=== PATIENT | female | born 1930 | race Asian ===

== ENCOUNTER 2017-01-08 10:30 | Outpatient (CLI) | payer MEDICARE, OTHER | END 2017-01-08 10:31 | disposition home or self-care (01) | LOC: LAB.WCP 10:30 | PROVIDERS: ATTEND Family Medicine | DX: R30.0 Dysuria (principal) | CPT/HCPCS: 87086 ==

== ENCOUNTER 2017-11-13 03:44 | Emergency (ER) | payer MEDICARE, OTHER ==
--- NOTE | 2017-11-13 04:06 | ED Physician Documentation ---
History of Present Illness - Stated complaint Stated Complaint: GREGORY HAND PAIN - Chief complaint Chief Complaint: Ext Problem - History obtained from History obtained from: Patient, Family - History of Present Illness Timing: Chronic Pain level now: 8 Improved by: rest Worsened by: movement - Additonal information Additional information: c/o BUE/BLE diffuse joint pains, chronic. Pain has been controlled with oxycodone but ran out oxycodone yesterday. Review of Systems Constitutional: reports: Reviewed and negative Cardiac: reports: Reviewed and negative Respiratory: denies: Dyspnea GI: reports: Reviewed and negative Musculoskeletal: reports: Neck pain, Extremity pain, Joint pain, Pain with weight bearing Neurologic: reports: Reviewed and negative PD PAST MEDICAL HISTORY - Past Medical History Past Medical History: Yes Cardiovascular: Hypertension, [place], Other Respiratory: Other Neuro: None Endocrine/Autoimmune: None GI: GERD : None HEENT: Chronic hearing loss Psych: Anxiety, Other Musculoskeletal: Osteoarthritis, Osteoporosis Derm: Psoriasis Other Past Medical History: Insomnia - Past Surgical History Past Surgical History: Yes 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 Cardiovascular: CABG, Coronary stent HEENT: Cataracts - Present Medications Home Medications: Ambulatory Orders Medication Instructions Recorded Confirmed Atorvastatin Calcium [Lipitor] 80 mg PO QPM 06/03/13 07/11/16 Carvedilol [Coreg] 6.25 mg PO BID 06/03/13 07/11/16 Lisinopril [Prinivil] 20 mg PO DAILY 06/03/13 07/11/16 Paroxetine HCl [Paxil] 30 mg PO DAILY 06/03/13 07/11/16 Adalimumab [Humira] 40 mg SQ Q14D 06/04/13 07/11/16 Glycopyrrolate [Robinul Forte] 2 mg PO TID 03/19/16 07/11/16 Ondansetron HCl [Zofran] 4 mg PO DAILY PRN 03/19/16 07/11/16 Pantoprazole [Protonix] 40 mg PO DAILY 03/19/16 07/11/16 Zolpidem [Ambien] 10 mg PO QPM 03/19/16 07/11/16 clonazePAM [Clonazepam] 1 tab PO QPM PRN 03/19/16 07/11/16 Clopidogrel [Plavix] 75 mg PO DAILY tablet 07/11/16 Folic Acid 0.5 mg PO DAILY tablet 07/11/16 Aspirin [Children's Aspirin] 1 tab PO DAILY 11/13/17 11/13/17 oxyCODONE [Roxicodone] 5 mg PO Q6H PRN #14 tablet 11/13/17 - Allergies Allergies/Adverse Reactions: Allergies Allergy/AdvReac Type Severity Reaction Status Date / Time R[place]wolf[place] Alkaloids Allergy Unknown unknown Verified 11/13/17 03:59 Sulfa (Sulfonamide Allergy Unknown unknown Verified 11/13/17 03:59 Antibiotics) Thiazides Allergy Unknown unknown Verified 11/13/17 03:59 - Social History Does the pt smoke?: No Smoking Status: Never smoker Does the pt drink ETOH?: No Does the pt have substance abuse?: No - Immunizations Immunizations are current?: Yes - POLST Patient has POLST: No PD ED PE NORMAL - Vitals Vital signs reviewed: Yes - General General: Alert and oriented X 3, No acute distress, Well developed/nourished, Other (falls asleep easily) - HEENT HEENT: Moist mucous membranes - Neck Neck: Supple, no meningeal sign - Cardiac Cardiac: RRR, No murmur - Respiratory Respiratory: No respiratory distress, Clear bilaterally - Extremities Extremities: Normal ROM s pain, No edema - Neuro Neuro: No sensory deficit PD ED PE EXPANDED - Extremities Extremities: Pedal Pulses Present. No: Tenderness, Limited ROM, Swelling Results - Vitals Vitals: Vital Signs - 24 hr 11/13/17 11/13/17 03:51 05:20 Temperature 36.5 C Heart Rate 61 72 Respiratory 18 16 Rate Blood Pressure 137/74 H 156/79 H O2 Saturation 100 99 Oxygen O2 Source Room air PD MEDICAL DECISION MAKING - ED course Complexity details: considered differential, d/w patient, d/w family Departure - Departure Disposition: 01 Home, Self Care Clinical Impression: Arthritis Condition: Good Instructions: ED Degenerative Joint Disease Follow-Up: Adrien Hernandez MD [Primary Care Provider] - (Call when the office opens this morning to arrange follow-up appointment) Prescriptions: oxyCODONE [Roxicodone] 5 mg PO Q6H PRN #14 tablet PRN Reason: Joint Pain Discharge Date/Time: 11/13/17 05:25
[2017-11-13] MEDS ORDERED: oxyCODONE 5 MG TABLET PO STA (05:04)
[2017-11-13 05:29] VITALS: BP 156/79
== END 2017-11-13 05:25 | disposition home or self-care (01) ==
LOC: ED 03:44
DX: M19.90 Unspecified osteoarthritis, unspecified site (principal); I10 Essential (primary) hypertension; I25.2 Old myocardial infarction; Z95.1 Presence of aortocoronary bypass graft; Z95.5 Presence of coronary angioplasty implant and graft; Z79.82 Long term (current) use of aspirin
CPT/HCPCS: 99283; A9270

== ENCOUNTER 2017-11-15 02:33 | Emergency (ER) | payer MEDICARE, OTHER ==
[2017-11-15] MEDS ORDERED: oxyCOD/ACETAMIN 5 MG/325 MG TABLET PO STA (03:32)
[2017-11-15] MEDS ORDERED: DEXAMETHASONE 10 MG/ML VIAL PO STA (03:33)
[2017-11-15 04:04] LABS: BASOPHILS # (AUTO) 0.1 10^3/uL (0.0-0.1); BASOPHILS % (AUTO) 0.8 %; EOSINOPHILS # (AUTO) 1.7 10^3/uL (0.0-0.7); EOSINOPHILS % (AUTO) 24.5 %; HGB - HEMOGLOBIN 12.1 g/dL (12.0-16.0); LYMPHOCYTES # (AUTO) 2.1 10^3/uL (1.5-3.5); LYMPHOCYTES % (AUTO) 31.1 %; MEAN CORPUSCULAR HEMOGLOBIN 30.5 pg (27.0-31.0); MEAN CORPUSCULAR HGB CONC 33.8 g/dL (32.0-36.0); MEAN CORPUSCULAR VOLUME 90.3 fL (81.0-99.0); MEAN PLATELET VOLUME 7.6 fL (7.9-10.8); MONOCYTES # (AUTO) 0.4 10^3/uL (0.0-1.0); MONOCYTES % (AUTO) 6.1 %; NEUTROPHILS # (AUTO) 2.6 10^3/uL (1.5-6.6); NEUTROPHILS % (AUTO) 37.5 %; PLT - PLATELET COUNT 195 10^3/uL (130-450); RED BLOOD COUNT 3.96 10^6/uL (4.20-5.40); RED CELL DISTRIBUTION WIDTH 13.3 % (12.0-15.0); WHITE BLOOD COUNT 6.8 x10^3/uL (4.8-10.8)
[2017-11-15 04:12] LABS: ALBUMIN 3.7 g/dL (3.2-5.5); BILIRUBIN,TOTAL 0.6 mg/dL (0.2-1.0); CALCIUM 9.3 mg/dL (8.5-10.3); CREATININE 1.1 mg/dL (0.4-1.0); MAGNESIUM 2.3 mg/dL (1.7-2.8); TOTAL PROTEIN 7.3 g/dL (6.7-8.2)
--- NOTE | 2017-11-15 04:32 | ED Physician Documentation ---
PD HPI LOWER EXT INJURY - Stated complaint Stated Complaint: HAND/LEG PX - Chief complaint Chief Complaint: Ext Problem - History obtained from History obtained from: Patient - History of Present Illness PD HPI LOW EXT INJURY LOCATION: Other (pains diffusely in arms and legs, particularly thighs and knees. Also arthritis in hands.) Type of injury: No: Fall, Twist Timing - onset: How many days ago (she has chronic arthritis pains in hands, knees, feet. Is having worse than usual pain and is gesturing towad thighs and hips. No rash nor sore. No particular injury.) Timing - duration: Days (has had increased pain over baseline the past month or more, so taking 2 rather than 1 pill at intervals instead, so is run out of her usual meds. Seen in ED yesterday and got an extra tab, but did not get the Rx filled. Was to see PMD today but did not make appt. Will be next week.) Timing - details: Gradual onset, Still present, Waxing and waning Worsened by: Moving, Palpating Associated symptoms: Weakness (general). No: Numbness, Swelling Contributing factors: No: Anticoagulated, Prior ortho surgery Similar symptoms before: Diagnosis (has rhematoid arthritis. Chronic general pains.) Recently seen: Emergency Dept (yesterday with the exac pain and given extra pain med. Also Rx for 14 more tabs, but patient did not get it filled as yet.) Review of Systems Constitutional: reports: Myalgias, Fatigue. denies: Fever, Chills Nose: denies: Rhinorrhea / runny nose, Congestion Throat: denies: Sore throat Cardiac: denies: Chest pain / pressure Respiratory: denies: Dyspnea, Cough GI: denies: Abdominal Pain, Nausea, Vomiting, Diarrhea, Bloody / black stool Skin: denies: Rash, Lesions Neurologic: reports: Generalized weakness. 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 Cardiovascular: CABG, Coronary stent HEENT: Cataracts - Present Medications Home Medications: Ambulatory Orders Medication Instructions Recorded Confirmed Atorvastatin Calcium [Lipitor] 80 mg PO QPM 06/03/13 07/11/16 Carvedilol [Coreg] 6.25 mg PO BID 06/03/13 07/11/16 Lisinopril [Prinivil] 20 mg PO DAILY 06/03/13 07/11/16 Paroxetine HCl [Paxil] 30 mg PO DAILY 06/03/13 07/11/16 Adalimumab [Humira] 40 mg SQ Q14D 06/04/13 07/11/16 Glycopyrrolate [Robinul Forte] 2 mg PO TID 03/19/16 07/11/16 Ondansetron HCl [Zofran] 4 mg PO DAILY PRN 03/19/16 07/11/16 Pantoprazole [Protonix] 40 mg PO DAILY 03/19/16 07/11/16 Zolpidem [Ambien] 10 mg PO QPM 03/19/16 07/11/16 clonazePAM [Clonazepam] 1 tab PO QPM PRN 03/19/16 07/11/16 Clopidogrel [Plavix] 75 mg PO DAILY tablet 07/11/16 Folic Acid 0.5 mg PO DAILY tablet 07/11/16 Aspirin [Children's Aspirin] 1 tab PO DAILY 11/13/17 11/13/17 oxyCODONE [Roxicodone] 5 mg PO Q6H PRN #14 tablet 11/13/17 Dexamethasone [Decadron] 4 mg PO DAILY #5 tablet 11/15/17 oxyCODONE [Roxicodone] 5 mg PO Q4-6H PRN #20 tablet 11/15/17 - Allergies Allergies/Adverse Reactions: Allergies Allergy/AdvReac Type Severity Reaction Status Date / Time Rauwolfia Alkaloids Allergy Unknown unknown Verified 11/15/17 02:55 Sulfa (Sulfonamide Allergy Unknown unknown Verified 11/15/17 02:55 Antibiotics) Thiazides Allergy Unknown unknown Verified 11/15/17 02:55 - Social History Does the pt smoke?: No Smoking Status: Never smoker Does the pt drink ETOH?: No Does the pt have substance abuse?: No - Immunizations Immunizations are current?: Yes - POLST Patient has POLST: No PD ED PE NORMAL - Vitals Vital signs reviewed: Yes - General General: Alert and oriented X 3, No acute distress, Well developed/nourished - HEENT HEENT: Pharynx benign - Neck Neck: Supple, no meningeal sign, No adenopathy - Cardiac Cardiac: RRR, No murmur - Respiratory Respiratory: Clear bilaterally - Abdomen Abdomen: Normal bowel sounds, Soft, Non tender, Non distended - Back Back: No CVA TTP - Derm Derm: Normal color, Warm and dry - Extremities Extremities: No edema, No calf tenderness / cord, Other (diffuse arthrlagias, particularly lower extremities. Some arthritic changes in finger joints. ) Results - Vitals Vitals: Vital Signs - 24 hr 11/15/17 11/15/17 11/15/17 02:40 04:15 04:38 Temperature 36.0 C L Heart Rate 64 55 L 60 Respiratory 18 18 18 Rate Blood Pressure 148/84 H 141/68 H 126/75 O2 Saturation 98 96 100 Oxygen O2 Source Room air - Labs Labs: Laboratory Tests 11/15/17 11/15/17 11/15/17 03:35 03:35 03:35 WBC 6.8 RBC 3.96 L Hgb 12.1 Hct 35.8 L MCV 90.3 MCH 30.5 MCHC 33.8 RDW 13.3 Plt Count 195 MPV 7.6 L Neut # 2.6 Lymph # 2.1 [place] # 0.4 Eos # 1.7 H Baso # 0.1 Absolute Nucleated RBC 0.00 Band Neuts % (Manual) Not Reportable Abnorm Lymph % (Manual) Not Reportable Nucleated RBC % 0.0 Neutrophils # (Manual) Not Reportable Lymphocytes # (Manual) Not Reportable Monocytes # (Manual) Not Reportable Eosinophils # (Manual) Not Reportable Basophils # (Manual) Not Reportable Differential Comment MANUAL=AUTO DIFF Platelet Estimate NORMAL (130-450,000) Platelet Morphology NORMAL APPEARANCE RBC Morph Micro Appear NORMAL APPEARANCE ESR 11 Sodium 135 Potassium 4.2 Chloride 103 Carbon Dioxide 26 Anion Gap 6.0 BUN 23 H Creatinine 1.1 H Estimated GFR (MDRD) 47 L Glucose 99 Calcium 9.3 Magnesium 2.3 Total Bilirubin 0.6 AST 34 ALT 26 Alkaline Phosphatase 57 Total Creatine Kinase 148 Total Protein 7.3 Albumin 3.7 Globulin 3.6 Albumin/Globulin Ratio 1.0 Lipase 27 PD MEDICAL DECISION MAKING - ED course Complexity details: reviewed results, re-evaluated patient (feeling much better with PO meds, so consider just out of her usual pain meds. ), considered differential (She has chronic pain and takes meds regularly. Has been taking some extra at times and so is short on meds. So can't tell if just out of meds so pain is more prominent. Or has some exac of issue, such as RA. Can give short course of steroids. Is on cholesterol med, so consider muscle pains from that and suggest that she stop it for 3-4 weeks. ), d/w patient Departure - Departure Disposition: 01 Home, Self Care Clinical Impression: Myalgia Condition: Stable Record reviewed to determine appropriate education?: Yes Instructions: ED Muscle Pain Leg Cramps Follow-Up: Adrien Hernandez MD [Primary Care Provider] - Prescriptions: Dexamethasone [Decadron] 4 mg PO DAILY #5 tablet oxyCODONE [Roxicodone] 5 mg PO Q4-6H PRN #20 tablet PRN Reason: Pain Comments: The cholesterol medicines can cause diffuse muscle pains and so I would suggest stopping your Lipitor for 3 or 4 weeks and see if it makes a general difference. He may be having arthritis pains instead and so we will add dexamethasone steroid daily for 5 days to see if it helps. Continue your other usual medications. Continue your oxycodone but try to decrease to a tablet for 5 times a day. Do not take extra beyond the recommended dose as you will run out early as you have. Follow-up with your primary care in the next few days for an appointment. Discharge Date/Time: 11/15/17 04:38
[2017-11-15 04:39] VITALS: BP 126/75
[2017-11-15 04:43] LABS: DIFFERENTIAL COMMENT MANUAL=AUTO DIFF; PLATELET ESTIMATE, MANUAL NORMAL (130-450,000) (NORMAL); PLATELET MORPHOLOGY NORMAL APPEARANCE (NORMAL); RBC MORPHOLOGY (MULTIPLE) NORMAL APPEARANCE (NORMAL)
== END 2017-11-15 04:38 | disposition home or self-care (01) ==
LOC: ED 02:33
DX: M79.1 Myalgia (principal); I10 Essential (primary) hypertension; Z79.82 Long term (current) use of aspirin; Z79.891 Long term (current) use of opiate analgesic
CPT/HCPCS: 80053; 82550; 83690; 83735; 85025; 85651; 99283; A9270; 36415

== ENCOUNTER 2018-02-03 15:11 | Emergency (ER) | payer MEDICARE, OTHER ==
--- NOTE | 2018-02-03 19:34 | ED Physician Documentation ---
History of Present Illness - Stated complaint Stated Complaint: BILAT HAND PX - Chief complaint Chief Complaint: General - History obtained from History obtained from: Patient - History of Present Illness Timing: How many days ago (has had increased arthritis pains in hands and joints ; pcp had decreased her pain meds from 6 daily to 4 daily and then this past month 2 daily, and she has had to take 3 daily or so and using NSAIDs as well. Having some epigastric pains the past few days. Out of the pain meds. Appt coming up later this week.) Quality: severe arthritis pains in joints, and mostly hands. Review of Systems Constitutional: denies: Fever, Chills Nose: denies: Rhinorrhea / runny nose, Congestion Throat: denies: Sore throat Cardiac: denies: Chest pain / pressure Respiratory: denies: Cough GI: reports: Abdominal Pain (epigastric area), Nausea. 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 Cardiovascular: CABG, Coronary stent HEENT: Cataracts - Present Medications Home Medications: Ambulatory Orders Medication Instructions Recorded Confirmed Atorvastatin Calcium [Lipitor] 80 mg PO QPM 06/03/13 07/11/16 Carvedilol [Coreg] 6.25 mg PO BID 06/03/13 07/11/16 Lisinopril [Prinivil] 20 mg PO DAILY 06/03/13 07/11/16 Paroxetine HCl [Paxil] 30 mg PO DAILY 06/03/13 07/11/16 Adalimumab [Humira] 40 mg SQ Q14D 06/04/13 07/11/16 Glycopyrrolate [Robinul Forte] 2 mg PO TID 03/19/16 07/11/16 Ondansetron HCl [Zofran] 4 mg PO DAILY PRN 03/19/16 07/11/16 Pantoprazole [Protonix] 40 mg PO DAILY 03/19/16 07/11/16 Zolpidem [Ambien] 10 mg PO QPM 03/19/16 07/11/16 clonazePAM [Clonazepam] 1 tab PO QPM PRN 03/19/16 07/11/16 Clopidogrel [Plavix] 75 mg PO DAILY tablet 07/11/16 Folic Acid 0.5 mg PO DAILY tablet 07/11/16 Aspirin [Children's Aspirin] 1 tab PO DAILY 11/13/17 11/13/17 oxyCODONE [Roxicodone] 5 mg PO Q6H PRN #14 tablet 11/13/17 Dexamethasone [Decadron] 4 mg PO DAILY #5 tablet 11/15/17 oxyCODONE [Roxicodone] 5 mg PO Q4-6H PRN #20 tablet 11/15/17 Famotidine [Pepcid] 20 mg PO ONCE #20 tablet 02/03/18 oxyCODONE [Roxicodone] 5 mg PO QID #20 tablet 02/03/18 - Allergies Allergies/Adverse Reactions: Allergies Allergy/AdvReac Type Severity Reaction Status Date / Time [place] Alkaloids Allergy Unknown unknown Verified 11/15/17 02:55 Sulfa (Sulfonamide Allergy Unknown unknown Verified 11/15/17 02:55 Antibiotics) Thiazides Allergy Unknown unknown Verified 02/03/18 15:19 - Social History Does the pt smoke?: No Smoking Status: Never smoker Does the pt drink ETOH?: No Does the pt have substance abuse?: No - Immunizations Immunizations are current?: Yes - POLST Patient has POLST: No PD ED PE NORMAL - Vitals Vital signs reviewed: Yes - General General: Alert and oriented X 3, Well developed/nourished, Other (seems in pain with hand and wrist movements.) - Cardiac Cardiac: RRR, No murmur - Respiratory Respiratory: Clear bilaterally - Abdomen Abdomen: Normal bowel sounds, Soft, Non tender, Non distended - Extremities Extremities: No edema, No calf tenderness / cord - Neuro Neuro: Alert and oriented X 3, No motor deficit, Normal speech Results - Vitals Vitals: Oxygen O2 Source Room air PD MEDICAL DECISION MAKING - ED course Complexity details: considered differential (has some epigastric pains and has been taking NSAIDs alot since not had prior pain meds for her arthritis. Will give Rx short term for pain meds, and then for her to discuss it with her PCP, consider other alternatives for the arthritis. ), d/w patient - Sepsis Event Vital Signs: Oxygen O2 Source Room air Departure - Departure Disposition: 01 Home, Self Care Clinical Impression: Hand arthritis, Stomach pain, NSAID induced gastritis Condition: Stable Record reviewed to determine appropriate education?: Yes Instructions: ED Gastritis, ED Degenerative Joint Disease Follow-Up: Adrien Hernandez MD [Primary Care Provider] - Prescriptions: Famotidine [Pepcid] 20 mg PO ONCE #20 tablet oxyCODONE [Roxicodone] 5 mg PO QID #20 tablet Comments: Continue the oxycodone 2-4 times a day as needed for pains. Follow-up with your primary care when he is back from vacation and he will need to discuss with him the frequency of dosing of the pain pills. He possibly might go from the for a day down to 3 a day or and then 2 a day rather than just the 2 a day drop that he currently did. I would be between you and him. I think your stomach is irritated from the anti-inflammatories (ibuprofen and naproxen). Use Tylenol instead and try some famotidine and antacids over the next few days. Recheck if not improving over the next several days. Discharge Date/Time: 02/03/18 20:36
[2018-02-03] MEDS ORDERED: oxyCOD/ACETAMIN 5 MG/325 MG TABLET PO STA (19:58)
[2018-02-03] MEDS ORDERED: FAMOTIDINE 20 MG TABLET PO STA (20:01)
[2018-02-03] MEDS ORDERED: oxyCODONE/ACET 5/325 Prepack 4 PO STA (20:01)
[2018-02-03] MEDS ORDERED: MAG HYDROX/AL HYDROX/SIMETH 30 ML UDC PO STA (20:01)
[2018-02-03 20:37] VITALS: BP 144/84
== END 2018-02-03 20:36 | disposition home or self-care (01) ==
LOC: ED 15:11
DX: M19.042 Primary osteoarthritis, left hand (principal); M19.041 Primary osteoarthritis, right hand; K29.60 Other gastritis without bleeding; I10 Essential (primary) hypertension; I25.2 Old myocardial infarction; K21.9 Gastro-esophageal reflux disease without esophagitis; M19.90 Unspecified osteoarthritis, unspecified site; M81.0 Age-related osteoporosis without current pathological fracture; I25.10 Atherosclerotic heart disease of native coronary artery without angina pectoris; Z95.1 Presence of aortocoronary bypass graft; Z79.82 Long term (current) use of aspirin; Z79.02 Long term (current) use of antithrombotics/antiplatelets
CPT/HCPCS: 99283; A9270

== ENCOUNTER 2018-03-14 14:15 | Outpatient (CLI) | payer MEDICARE, OTHER ==
[2018-03-15 13:22] LABS: HIV AG/AB 4TH GEN NON-REACTIVE (NON-REACTIVE)
[2018-03-15 13:36] LABS: HEPATITIS C ANTIBODY REACTIVE (NON-REACTIVE)
[2018-03-19 13:41] LABS: HSV 1 IGG TYPE SPECIFIC AB 43.7 index; HSV 2 IGG TYPE SPECIFIC AB 15.1 index
[2018-03-19 15:11] LABS: HCV RNA QNT <1.18 DETECTED Log IU/mL (NOT DETECTED); HCV RNA QUANT RT PCR <15 DETECTED IU/mL (NOT DETECTED)
== END 2018-03-14 14:16 | disposition home or self-care (01) ==
LOC: LAB.WCP 14:15
PROVIDERS: ATTEND Family Medicine
DX: Z11.3 Encounter for screening for infections with a predominantly sexual mode of transmission (principal)
CPT/HCPCS: 36415; 81599; 86592; 86695; 86696; 86803; G0475; 87389; 87491; 87591

== ENCOUNTER 2018-06-28 11:35 | Outpatient (CLI) | payer MEDICARE, OTHER | END 2018-06-28 11:36 | disposition critical access hospital (66) | LOC: EMS 11:35 | PROVIDERS: ATTEND Surgery | DX: R07.81 Pleurodynia (principal); M25.512 Pain in left shoulder; W03.XXXA Other fall on same level due to collision with another person, initial encounter | CPT/HCPCS: A0425; A0429 ==

== ENCOUNTER 2018-06-28 11:55 | Emergency (ER) | payer MEDICARE, OTHER ==
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
[2018-06-28 12:49] LABS: BASOPHILS % (AUTO) 0.9 %; EOSINOPHILS # (AUTO) 0.3 10^3/uL (0.0-0.7); EOSINOPHILS % (AUTO) 6.6 %; HGB - HEMOGLOBIN 13.9 g/dL (12.0-16.0); LYMPHOCYTES # (AUTO) 1.4 10^3/uL (1.5-3.5); LYMPHOCYTES % (AUTO) 28.7 %; MEAN CORPUSCULAR HEMOGLOBIN 29.6 pg (27.0-31.0); MEAN CORPUSCULAR HGB CONC 33.7 g/dL (32.0-36.0); MEAN PLATELET VOLUME 7.2 fL (7.9-10.8); MONOCYTES # (AUTO) 0.4 10^3/uL (0.0-1.0); NEUTROPHILS # (AUTO) 2.8 10^3/uL (1.5-6.6); NEUTROPHILS % (AUTO) 55.8 %; PLT - PLATELET COUNT 224 10^3/uL (130-450); RED BLOOD COUNT 4.68 10^6/uL (4.20-5.40); RED CELL DISTRIBUTION WIDTH 14.3 % (12.0-15.0)
[2018-06-28 13:00] LABS: ALBUMIN 3.9 g/dL (3.2-5.5); BILIRUBIN,TOTAL 0.9 mg/dL (0.2-1.0); CALCIUM 9.6 mg/dL (8.5-10.3); CREATININE 1.2 mg/dL (0.4-1.0); TOTAL PROTEIN 7.7 g/dL (6.7-8.2)
--- NOTE | 2018-06-28 13:13 | XRAY Report ---
Reason: cp, fall rib pain Procedure Date: 06/28/2018 Accession Number: [id number] / [id number] Procedure: XR - Chest 1 View X-Ray CPT Code: 47322 FULL RESULT: EXAM: CHEST RADIOGRAPHY EXAM DATE: 06/28/2018 12:27 PM. CLINICAL HISTORY: Cp, fall rib pain. COMPARISON: 04/11/2018. TECHNIQUE: 1 view. FINDINGS: Lungs/Pleura: No focal opacities evident. No pleural effusion. No pneumothorax. Mediastinum: Heart size is normal. Aorta is tortuous. Other: Changes again seen for median sternotomy. No acute osseous abnormalities are identified healed left humeral neck fracture. IMPRESSION: 1. No acute disease in the chest. RADIA
--- NOTE | 2018-06-28 13:35 | CT Report ---
Reason: L chest pain, trauma Procedure Date: 06/28/2018 Accession Number: [id number] / [id number] Procedure: CT - Chest W/O CPT Code: FULL RESULT: EXAM: CT CHEST EXAM DATE: 06/28/2018 12:59 PM. CLINICAL HISTORY: Left chest pain, trauma. COMPARISONS: 06/28/2018. 04/11/2018. TECHNIQUE: Routine helical CT imaging was performed through the chest. IV contrast: None. Reconstructions: Coronal and sagittal. In accordance with CT protocol optimization, one or more of the following dose reduction techniques were utilized for this exam: automated exposure control, adjustment of mA and/or KV based on patient size, or use of iterative reconstructive technique. FINDINGS: Lungs/Pleura: No endobronchial obstruction. No pneumothorax. Scarring in the anterior medial left upper lobe and both lower lobes. Basilar subpleural reticulation which can be seen with interstitial lung disease. Calcified right upper lobe granuloma. Mediastinum: Visualized thyroid gland is unremarkable. Changes are seen from median sternotomy and bypass surgery. Coronary artery calcified plaque. Thoracic aortic calcified plaque. Maximal size of the mid ascending aorta measures 3.8-3.9 cm. No enlarged mediastinal or hilar lymph nodes. Small hiatal hernia. No mediastinal hematoma. Bones: Degenerative changes of the thoracic spine. T12 moderate compression deformity seen with approximately 50% loss of vertebral body height. Mildly displaced left anterior medial third, nondisplaced medial fourth and fifth rib fractures. Old healed left humeral neck fracture. Visualized Abdomen: Low attenuation lesion measuring 5 mm in the dome of the liver. Otherwise remainder of the included portion of the liver, spleen, adrenals, pancreas, kidneys, upper abdominal bowel and stomach are unremarkable. Abdominal aortic calcified plaque. Other: None. IMPRESSION: 1. Left anterior medial third through fifth rib fractures with mild displacement of the third rib fracture. 2. No pneumothorax. No pleural effusions. 3. Status post median sternotomy and bypass surgery. 4. Moderate T12 compression deformity, acute/subacute. RADIA
[2018-06-28 13:58] VITALS: BP 120/78
== END 2018-06-28 13:58 | disposition home or self-care (01) ==
LOC: EDUNIT# → ED 11:55
DX: S22.42XA Multiple fractures of ribs, left side, initial encounter for closed fracture (principal); S22.080A Wedge compression fracture of T11-T12 vertebra, initial encounter for closed fracture; W50.0XXA Accidental hit or strike by another person, initial encounter; Y92.89 Other specified places as the place of occurrence of the external cause; I10 Essential (primary) hypertension; Z79.02 Long term (current) use of antithrombotics/antiplatelets
CPT/HCPCS: 36415; 71045; 71250; 80053; 83690; 84484; 85025; 93005; 99284

== ENCOUNTER 2018-08-22 03:23 | Outpatient (CLI) | payer MEDICARE, OTHER | END 2018-08-22 03:24 | disposition home or self-care (01) | LOC: EMS 03:23 | PROVIDERS: ATTEND Surgery | DX: R68.89 Other general symptoms and signs (principal) | CPT/HCPCS: A0425; A0429 ==

== ENCOUNTER 2018-08-22 03:42 | Emergency (ER) | payer MEDICARE, OTHER ==
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
[2018-08-22 04:33] LABS: BASOPHILS # (AUTO) 0.1 10^3/uL (0.0-0.1); BASOPHILS % (AUTO) 1.1 %; EOSINOPHILS # (AUTO) 0.2 10^3/uL (0.0-0.7); EOSINOPHILS % (AUTO) 3.2 %; HGB - HEMOGLOBIN 13.9 g/dL (12.0-16.0); LYMPHOCYTES # (AUTO) 1.9 10^3/uL (1.5-3.5); LYMPHOCYTES % (AUTO) 25.6 %; MEAN CORPUSCULAR HEMOGLOBIN 30.1 pg (27.0-31.0); MEAN CORPUSCULAR HGB CONC 33.4 g/dL (32.0-36.0); MEAN CORPUSCULAR VOLUME 90.3 fL (81.0-99.0); MEAN PLATELET VOLUME 7.1 fL (7.9-10.8); MONOCYTES # (AUTO) 0.5 10^3/uL (0.0-1.0); MONOCYTES % (AUTO) 6.4 %; NEUTROPHILS # (AUTO) 4.8 10^3/uL (1.5-6.6); NEUTROPHILS % (AUTO) 63.7 %; PLT - PLATELET COUNT 243 10^3/uL (130-450); RED BLOOD COUNT 4.59 10^6/uL (4.20-5.40); RED CELL DISTRIBUTION WIDTH 14.7 % (12.0-15.0); WHITE BLOOD COUNT 7.6 x10^3/uL (4.8-10.8)
[2018-08-22 04:40] LABS: CALCIUM 9.4 mg/dL (8.5-10.3); CREATININE 1.2 mg/dL (0.4-1.0)
[2018-08-22 04:44] LABS: MUDS CUTOFF CONCENTRATIONS CUTOFF CONC BELOW:
[2018-08-22 04:45] LABS: BILIRUBIN,URINE NEGATIVE (NEGATIVE); GLUCOSE, URINE (UA) NEGATIVE (NEGATIVE); KETONES,URINE (UA) NEGATIVE (NEGATIVE); LEUKOCYTE ESTERASE, URINE NEGATIVE (NEGATIVE); NITRITE,URINE NEGATIVE (NEGATIVE); OCCULT BLOOD,URINE MODERATE (NEGATIVE); PROTEIN,URINE NEGATIVE (NEGATIVE); UROBILINOGEN,URINE 0.2 (NORMAL) E.U./dL (NORMAL)
[2018-08-22 04:51] LABS: CLARITY,URINE CLEAR (CLEAR); SQUAMOUS EPITHELIAL CELL,UR MOD Squamous (<= Few)
[2018-08-22 04:52] LABS: BACTERIA,URINE Rare /HPF (None Seen); CASTS, URINE 3-5 Hyaline Casts /LPF
--- NOTE | 2018-08-22 04:54 | CT Report ---
Reason: AMS Procedure Date: 08/22/2018 Accession Number: [id number] / [id number] Procedure: CT - Head W/O CPT Code: FULL RESULT: EXAM: CT HEAD EXAM DATE: 08/22/2018 04:25 AM. CLINICAL HISTORY: AMS. COMPARISON: HEAD W/O 03/19/2016 10:32 PM, HEAD W/O 03/18/2015 5:52 AM. TECHNIQUE: Multiaxial CT images were obtained from the foramen magnum to the vertex. Reformats: Sagittal and coronal. IV contrast: None. In accordance with CT protocol optimization, one or more of the following dose reduction techniques were utilized for this exam: automated exposure control, adjustment of mA and/or KV based on patient size, or use of iterative reconstructive technique. FINDINGS: Parenchyma: No intraparenchymal hemorrhage. No evidence of mass, midline shift, or CT findings of acute infarction. Brown-white differentiation is distinct. Moderate diffuse chronic microangiopathic white matter changes are evident. Extraaxial Spaces: Normal for age. No subdural or epidural collections identified. Ventricles: The ventricles and cortical sulci are moderately enlarged, consistent with age-related tissue loss. Sinuses and Orbits: The partially visualized hypoplastic and sclerotic right maxillary sinus is opacified with a potential air-fluid level. Postsurgical changes from cataract extractions are noted in the globes. The mastoid sinuses are not opacified. Bones: No evidence of fracture or calvarial defect. Other: Mild intracranial atherosclerosis is present. IMPRESSION: 1. No acute intracranial process. 2. Potential air-fluid level in the right maxillary sinus. Clinical correlation for acute sinusitis is recommended. RADIA
[2018-08-22 04:55] LABS: AMPHETAMINE SCREEN,URINE NEGATIVE (NEGATIVE); BENZODIAZEPINES SCREEN, URINE NEGATIVE (NEGATIVE); COCAINE SCREEN URINE NEGATIVE (NEGATIVE); METHADONE SCREEN, URINE NEGATIVE (NEGATIVE); METHAMPHETAMINES SCREEN, URINE NEGATIVE (NEGATIVE); OPIATE SCREEN, URINE NEGATIVE (NEGATIVE); OXYCODONE SCREEN, URINE NEGATIVE (NEGATIVE); PROPOXYPHENE SCREEN, URINE NEGATIVE (NEGATIVE); TRICYCLIC ANTIDEPRESSANT,URINE NEGATIVE (NEGATIVE)
[2018-08-22 10:02] VITALS: BP 162/89
== END 2018-08-22 09:25 | disposition home or self-care (01) ==
LOC: EDUNIT# → ED 03:42
DX: R41.82 Altered mental status, unspecified (principal); I25.2 Old myocardial infarction; E78.00 Pure hypercholesterolemia, unspecified; I10 Essential (primary) hypertension; Z95.5 Presence of coronary angioplasty implant and graft; Z95.1 Presence of aortocoronary bypass graft; Z79.82 Long term (current) use of aspirin
CPT/HCPCS: 36415; 70450; 80048; 80306; 81001; 81003; 85025; 87086; 99283; 99285

== ENCOUNTER 2018-08-30 08:49 | Outpatient (CLI) | payer MEDICARE, OTHER | END 2018-08-30 08:50 | disposition critical access hospital (66) | LOC: EMS 08:49 | PROVIDERS: ATTEND Surgery | DX: R53.1 Weakness (principal) | CPT/HCPCS: A0425; A0429 ==

== ENCOUNTER 2018-08-30 09:09 | Inpatient (IN) | payer MEDICARE, OTHER ==
[2018-08-30] MEDS ORDERED: SODIUM CHLORIDE 0.9% 1,000 ML IV ONE ×2 (09:31→10:44)
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
[2018-08-30 09:36] LABS: BASOPHILS % (AUTO) 0.2 %; EOSINOPHILS % (AUTO) 0.3 %; HGB - HEMOGLOBIN 12.6 g/dL (12.0-16.0); LYMPHOCYTES # (AUTO) 0.5 10^3/uL (1.5-3.5); LYMPHOCYTES % (AUTO) 8.5 %; MEAN CORPUSCULAR HEMOGLOBIN 29.9 pg (27.0-31.0); MEAN CORPUSCULAR HGB CONC 33.5 g/dL (32.0-36.0); MEAN CORPUSCULAR VOLUME 89.2 fL (81.0-99.0); MEAN PLATELET VOLUME 7.4 fL (7.9-10.8); MONOCYTES # (AUTO) 0.5 10^3/uL (0.0-1.0); MONOCYTES % (AUTO) 8.7 %; NEUTROPHILS # (AUTO) 4.9 10^3/uL (1.5-6.6); NEUTROPHILS % (AUTO) 82.3 %; PLT - PLATELET COUNT 159 10^3/uL (130-450); RED BLOOD COUNT 4.22 10^6/uL (4.20-5.40); RED CELL DISTRIBUTION WIDTH 14.8 % (12.0-15.0)
[2018-08-30 09:50] LABS: ALBUMIN 3.4 g/dL (3.2-5.5); ALBUMIN/GLOBULIN RATIO 0.9 (1.0-2.2); BILIRUBIN,TOTAL 0.7 mg/dL (0.2-1.0); CALCIUM 8.5 mg/dL (8.5-10.3); CREATININE 2.3 mg/dL (0.4-1.0); TOTAL PROTEIN 7.3 g/dL (6.7-8.2)
--- NOTE | 2018-08-30 09:55 | XRAY Report ---
Reason: chest pain Procedure Date: 08/30/2018 Accession Number: [id number] / [id number] Procedure: XR - Chest 1 View X-Ray CPT Code: 96369 FULL RESULT: EXAM: CHEST RADIOGRAPHY EXAM DATE: 08/30/2018 09:36 AM. CLINICAL HISTORY: Chest pain. Generalized weakness x2 days. COMPARISON: CHEST 1 VIEW 06/28/2018 12:14 PM CHEST W/O 06/28/2018 12:49 PM. TECHNIQUE: 1 view. FINDINGS: Lungs/Pleura: No focal opacities evident. No pleural effusion. No pneumothorax. Mediastinum: Within exam limitations, the cardiomediastinal contour is normal. There is moderate atherosclerotic calcification of the aortic arch. Other: The patient is post median sternotomy with intact sternal cerclage wires. There are healing left lateral third, fourth, and fifth rib fractures, corresponding to the fracture seen on prior CT chest on 06/28/2018. No acute osseous abnormality. IMPRESSION: 1. No acute cardiopulmonary abnormality. 2. Healing left lateral rib fractures, corresponding to the fracture seen on prior CT on 06/28/2018. RADIA
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
[2018-08-30 12:02] LABS: BILIRUBIN,URINE NEGATIVE (NEGATIVE); GLUCOSE, URINE (UA) NEGATIVE (NEGATIVE); KETONES,URINE (UA) NEGATIVE (NEGATIVE); LEUKOCYTE ESTERASE, URINE TRACE (NEGATIVE); NITRITE,URINE POSITIVE (NEGATIVE); OCCULT BLOOD,URINE MODERATE (NEGATIVE); PH,URINE 5.5 PH (5.0-7.5); PROTEIN,URINE NEGATIVE (NEGATIVE); UROBILINOGEN,URINE 0.2 (NORMAL) E.U./dL (NORMAL)
[2018-08-30 12:04] LABS: CLARITY,URINE HAZY (CLEAR)
[2018-08-30 12:11] LABS: BACTERIA,URINE Few /HPF (None Seen); SQUAMOUS EPITHELIAL CELL,UR FEW Squamous (<= Few)
[2018-08-30] MEDS ORDERED: cefTRIAXone 1 GM in SODIUM CHLORIDE 0.9% MINIBAG 100 ML IV STA (12:42)
[2018-08-30] MEDS ORDERED: ONDANSETRON 4 MG/2 ML VIAL IVP PRN (13:35)
[2018-08-30] MEDS ORDERED: ONDANSETRON ODT 4 MG TABLET TL PRN (13:35)
[2018-08-30] MEDS ORDERED: TEMAZEPAM 15 MG CAPSULE PO PRN (13:35)
[2018-08-30] MEDS: DEXTROSE 5%-0.9% NACL 1,000 ML IV SCH (14:45)
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
[2018-08-30] MEDS: oxyCODONE 5 MG TABLET PO SCH (21:41)
[2018-08-30] MEDS: CARVEDILOL 3.125 MG TABLET PO SCH (21:42)
[2018-08-30] MEDS: HEPARIN 5,000 UNIT/ML VIAL SUBQ SCH (21:42)
[2018-08-31] MEDS: ACETAMINOPHEN 325 MG TABLET PO PRN ×2 (00:12→04:10)
[2018-08-31] MEDS: DEXTROSE 5%-0.9% NACL 1,000 ML IV SCH ×3 (01:34→19:58)
[2018-08-31] MEDS: SODIUM CHLORIDE FLUSH 0.9% 10 ML SYRINGE IVP SCH ×3 (01:34→16:39)
[2018-08-31] MEDS: oxyCODONE 5 MG TABLET PO SCH ×3 (05:48→21:49)
[2018-08-31] MEDS: PANTOPRAZOLE 40 MG TABLET PO SCH (06:40)
[2018-08-31 07:19] LABS: ALBUMIN 3.1 g/dL (3.2-5.5); ALBUMIN/GLOBULIN RATIO 0.9 (1.0-2.2); BILIRUBIN,TOTAL 0.6 mg/dL (0.2-1.0); CALCIUM 8.4 mg/dL (8.5-10.3); CREATININE 1.1 mg/dL (0.4-1.0); PHOSPHORUS 2.2 mg/dL (2.5-4.6); TOTAL PROTEIN 6.4 g/dL (6.7-8.2)
[2018-08-31] MEDS ORDERED: CALCIUM CARBONATE CHEW 500 MG TABLET PO PRN (07:33)
[2018-08-31 07:41] LABS: BASOPHILS % (AUTO) 0.3 %; EOSINOPHILS # (AUTO) 0.1 10^3/uL (0.0-0.7); EOSINOPHILS % (AUTO) 1.5 %; HGB - HEMOGLOBIN 12.1 g/dL (12.0-16.0); LYMPHOCYTES # (AUTO) 1.2 10^3/uL (1.5-3.5); LYMPHOCYTES % (AUTO) 22.9 %; MEAN CORPUSCULAR HEMOGLOBIN 30.1 pg (27.0-31.0); MEAN CORPUSCULAR HGB CONC 33.8 g/dL (32.0-36.0); MEAN CORPUSCULAR VOLUME 88.9 fL (81.0-99.0); MEAN PLATELET VOLUME 7.8 fL (7.9-10.8); MONOCYTES # (AUTO) 0.6 10^3/uL (0.0-1.0); MONOCYTES % (AUTO) 11.6 %; NEUTROPHILS # (AUTO) 3.3 10^3/uL (1.5-6.6); NEUTROPHILS % (AUTO) 63.7 %; PLT - PLATELET COUNT 149 10^3/uL (130-450); RED BLOOD COUNT 4.02 10^6/uL (4.20-5.40); RED CELL DISTRIBUTION WIDTH 14.7 % (12.0-15.0); WHITE BLOOD COUNT 5.2 x10^3/uL (4.8-10.8)
[2018-08-31] MEDS: HEPARIN 5,000 UNIT/ML VIAL SUBQ SCH ×2 (10:59→21:50)
[2018-08-31] MEDS: POLYETHYLENE GLYCOL 3350 17 GM PACKET PO SCH (10:59)
[2018-08-31] MEDS: CARVEDILOL 3.125 MG TABLET PO SCH ×2 (10:59→21:49)
[2018-08-31] MEDS: CLOPIDOGREL 75 MG TABLET PO SCH (10:59)
[2018-08-31] MEDS: cefTRIAXone 1 GM in SODIUM CHLORIDE 0.9% MINIBAG 100 ML IV SCH ×2 (13:24→19:59)
[2018-08-31] MEDS ORDERED: HALOPERIDOL 5 MG/ML VIAL IM PRN (16:27)
[2018-08-31] MEDS: LORazepam 0.5 MG TABLET PO PRN (16:48)
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
[2018-08-31] MEDS ORDERED: OLANZapine 10 MG VIAL IM SCH (18:38)
[2018-08-31] MEDS: LORazepam 2 MG/ML VIAL IVP PRN (23:06)
[2018-09-01] MEDS: SODIUM CHLORIDE FLUSH 0.9% 10 ML SYRINGE IVP SCH ×3 (05:20→15:57)
[2018-09-01] MEDS: DEXTROSE 5%-0.9% NACL 1,000 ML IV SCH (05:26)
[2018-09-01] MEDS: oxyCODONE 5 MG TABLET PO SCH ×3 (05:30→22:31)
[2018-09-01] MEDS: PANTOPRAZOLE 40 MG TABLET PO SCH (06:19)
[2018-09-01 07:43] LABS: BASOPHILS % (AUTO) 0.5 %; EOSINOPHILS # (AUTO) 0.1 10^3/uL (0.0-0.7); EOSINOPHILS % (AUTO) 2.3 %; HGB - HEMOGLOBIN 12.3 g/dL (12.0-16.0); LYMPHOCYTES # (AUTO) 1.5 10^3/uL (1.5-3.5); LYMPHOCYTES % (AUTO) 35.7 %; MEAN CORPUSCULAR HEMOGLOBIN 29.7 pg (27.0-31.0); MEAN CORPUSCULAR HGB CONC 33.6 g/dL (32.0-36.0); MEAN CORPUSCULAR VOLUME 88.4 fL (81.0-99.0); MEAN PLATELET VOLUME 7.5 fL (7.9-10.8); MONOCYTES # (AUTO) 0.4 10^3/uL (0.0-1.0); NEUTROPHILS # (AUTO) 2.2 10^3/uL (1.5-6.6); NEUTROPHILS % (AUTO) 51.5 %; PLT - PLATELET COUNT 159 10^3/uL (130-450); RED BLOOD COUNT 4.13 10^6/uL (4.20-5.40); RED CELL DISTRIBUTION WIDTH 14.6 % (12.0-15.0); WHITE BLOOD COUNT 4.2 x10^3/uL (4.8-10.8)
[2018-09-01 07:58] LABS: ALBUMIN 2.9 g/dL (3.2-5.5); ALBUMIN/GLOBULIN RATIO 0.8 (1.0-2.2); BILIRUBIN,TOTAL 0.3 mg/dL (0.2-1.0); CALCIUM 8.4 mg/dL (8.5-10.3); CREATININE 0.9 mg/dL (0.4-1.0); PHOSPHORUS 2.3 mg/dL (2.5-4.6); TOTAL PROTEIN 6.4 g/dL (6.7-8.2)
[2018-09-01] MEDS: POLYETHYLENE GLYCOL 3350 17 GM PACKET PO SCH (08:37)
[2018-09-01] MEDS: CARVEDILOL 3.125 MG TABLET PO SCH ×2 (08:38→22:30)
[2018-09-01] MEDS: CLOPIDOGREL 75 MG TABLET PO SCH (08:38)
[2018-09-01] MEDS: HEPARIN 5,000 UNIT/ML VIAL SUBQ SCH (08:43)
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
[2018-09-01] MEDS: SACCHAROMYCES BOULARDII 250 MG CAPSULE PO SCH (18:56)
[2018-09-01] MEDS ORDERED: POTASSIUM CHLOR 10 MEQ/100 ML 10 MEQ/100 ML BAG IV SCH ×2 (19:50→19:53)
[2018-09-01] MEDS ORDERED: POTASSIUM CHLORIDE 20 MEQ/15 ML UDC PO SCH (19:54)
[2018-09-01] MEDS ORDERED: cefTRIAXone 1 GM in SODIUM CHLORIDE 0.9% MINIBAG 100 ML IV SCH (20:00)
[2018-09-01] MEDS: SODIUM CHLORIDE FLUSH 0.9% 10 ML SYRINGE IVP PRN ×2 (20:35→20:40)
[2018-09-02] MEDS: PHENOL THROAT SPRAY 177 ML MM PRN ×3 (02:27→18:31)
[2018-09-02] MEDS: SODIUM CHLORIDE FLUSH 0.9% 10 ML SYRINGE IVP PRN ×2 (02:27→21:37)
[2018-09-02] MEDS: LORazepam 0.5 MG TABLET PO PRN (02:31)
[2018-09-02] MEDS: SODIUM CHLORIDE FLUSH 0.9% 10 ML SYRINGE IVP SCH ×3 (03:07→16:24)
[2018-09-02] MEDS: oxyCODONE 5 MG TABLET PO SCH ×3 (06:13→22:39)
[2018-09-02] MEDS: PANTOPRAZOLE 40 MG TABLET PO SCH (06:16)
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
[2018-09-02 06:42] LABS: BASOPHILS % (AUTO) 0.6 %; EOSINOPHILS # (AUTO) 0.2 10^3/uL (0.0-0.7); EOSINOPHILS % (AUTO) 3.6 %; HGB - HEMOGLOBIN 12.7 g/dL (12.0-16.0); LYMPHOCYTES # (AUTO) 2.1 10^3/uL (1.5-3.5); LYMPHOCYTES % (AUTO) 36.7 %; MEAN CORPUSCULAR HGB CONC 33.7 g/dL (32.0-36.0); MEAN CORPUSCULAR VOLUME 89.2 fL (81.0-99.0); MEAN PLATELET VOLUME 7.5 fL (7.9-10.8); MONOCYTES # (AUTO) 0.4 10^3/uL (0.0-1.0); MONOCYTES % (AUTO) 6.6 %; NEUTROPHILS # (AUTO) 3.1 10^3/uL (1.5-6.6); NEUTROPHILS % (AUTO) 52.5 %; PLT - PLATELET COUNT 173 10^3/uL (130-450); RED BLOOD COUNT 4.23 10^6/uL (4.20-5.40); RED CELL DISTRIBUTION WIDTH 14.7 % (12.0-15.0); WHITE BLOOD COUNT 5.8 x10^3/uL (4.8-10.8)
[2018-09-02 06:43] LABS: ALBUMIN 3.1 g/dL (3.2-5.5); ALBUMIN/GLOBULIN RATIO 0.8 (1.0-2.2); BILIRUBIN,TOTAL 0.2 mg/dL (0.2-1.0); CALCIUM 8.5 mg/dL (8.5-10.3); CREATININE 0.9 mg/dL (0.4-1.0)
[2018-09-02] MEDS: SACCHAROMYCES BOULARDII 250 MG CAPSULE PO SCH ×2 (08:55→16:25)
[2018-09-02] MEDS: CARVEDILOL 3.125 MG TABLET PO SCH ×2 (08:56→21:36)
[2018-09-02] MEDS: CLOPIDOGREL 75 MG TABLET PO SCH (08:56)
[2018-09-02] MEDS: ENOXAPARIN 30 MG/0.3 ML SYRINGE SUBQ SCH (08:56)
[2018-09-02] MEDS: POLYETHYLENE GLYCOL 3350 17 GM PACKET PO SCH (08:58)
[2018-09-02] MEDS: ACETAMINOPHEN 325 MG TABLET PO PRN (21:34)
[2018-09-02] MEDS: LORazepam 2 MG/ML VIAL IVP PRN (21:36)
[2018-09-03] MEDS: SODIUM CHLORIDE FLUSH 0.9% 10 ML SYRINGE IVP SCH ×3 (05:08→16:40)
[2018-09-03] MEDS: PANTOPRAZOLE 40 MG TABLET PO SCH (06:03)
[2018-09-03] MEDS: oxyCODONE 5 MG TABLET PO SCH ×3 (06:03→22:01)
[2018-09-03] MEDS: CLOPIDOGREL 75 MG TABLET PO SCH (09:51)
[2018-09-03] MEDS: CARVEDILOL 3.125 MG TABLET PO SCH ×2 (09:51→22:01)
[2018-09-03] MEDS: SACCHAROMYCES BOULARDII 250 MG CAPSULE PO SCH ×2 (09:51→16:39)
[2018-09-03] MEDS: POLYETHYLENE GLYCOL 3350 17 GM PACKET PO SCH (09:52)
[2018-09-03] MEDS: ENOXAPARIN 30 MG/0.3 ML SYRINGE SUBQ SCH (09:52)
[2018-09-03] MEDS: ACETAMINOPHEN 325 MG TABLET PO PRN (13:32)
[2018-09-03] MEDS ORDERED: oxyCODONE 5 MG TABLET PO SCH (16:30)
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
[2018-09-03] MEDS: PHENOL THROAT SPRAY 177 ML MM PRN (21:44)
[2018-09-04] MEDS: SODIUM CHLORIDE FLUSH 0.9% 10 ML SYRINGE IVP SCH ×3 (01:05→19:29)
[2018-09-04] MEDS: PHENOL THROAT SPRAY 177 ML MM PRN ×3 (01:22→22:53)
[2018-09-04] MEDS: SODIUM CHLORIDE FLUSH 0.9% 10 ML SYRINGE IVP PRN (03:00)
[2018-09-04] MEDS: LORazepam 2 MG/ML VIAL IVP PRN (03:00)
[2018-09-04] MEDS: NITROGLYCERIN SL 0.4 MG TABLET SL PRN ×3 (05:01→05:15)
[2018-09-04] MEDS: ASPIRIN CHEW 81 MG TABLET PO SCH (05:03)
[2018-09-04] MEDS ORDERED: ASPIRIN CHEW 81 MG TABLET ONE (05:05)
--- NOTE | 2018-09-04 05:08 | PROVIDER PROGRESS NOTE ---
Information Security Manager Note - Information Security Manager Note Information Security Manager Note: Patient experienced 8/10 substernal to midsternal burning "reproducible" chest pain for which ASA was given, already on plavix for CAD/CABG with multiple stents, stated no nausea or diaphoresis, she was having some anxiety as well. Nitro was administered, BP 179/82 with RR 18 100% o2 sat on 2L NC, HR 75. ECG was ordered, renal panel, mag, and troponin. Gabapentin, Atorvastatin, and voltaren gel were resumed. On her previous med list was on Humira. O: VSS, afebrile no jvd, misternal reproducible CP, no murmurs, gallops or clicks No bruits no edema, 2+pulses DP A/P: 1. Chest Pain, Atypical CP likely, hx CAD/CABG with multiple stents. 2. HTN 3. Anxiety Plan: After she was given NTG chest pain had significantly decreased, was Difficult to discern true chest pain vs other such as GERD or anxiety/muskulo- skeletal related, however it is reproducible in nature. Would med manage for now. ECG, labs, trops, mag, ntg prn plus addition of asa, multiple cardiac risk factors. Patient already on coreg, resume statin, voltaren and neurontin. DNR status.
[2018-09-04 05:53] LABS: ALBUMIN 3.3 g/dL (3.2-5.5); CALCIUM 9.1 mg/dL (8.5-10.3); MAGNESIUM 2.3 mg/dL (1.7-2.8); PHOSPHORUS 3.8 mg/dL (2.5-4.6)
[2018-09-04] MEDS: PANTOPRAZOLE 40 MG TABLET PO SCH (05:54)
[2018-09-04] MEDS: oxyCODONE 5 MG TABLET PO SCH ×3 (05:56→21:18)
[2018-09-04] MEDS: CARVEDILOL 3.125 MG TABLET PO SCH ×2 (09:48→21:22)
[2018-09-04] MEDS: CLOPIDOGREL 75 MG TABLET PO SCH (09:48)
[2018-09-04] MEDS: SACCHAROMYCES BOULARDII 250 MG CAPSULE PO SCH ×2 (09:48→16:09)
[2018-09-04] MEDS: ENOXAPARIN 30 MG/0.3 ML SYRINGE SUBQ SCH (09:48)
[2018-09-04] MEDS: POLYETHYLENE GLYCOL 3350 17 GM PACKET PO SCH (09:52)
[2018-09-04] MEDS: DICLOFENAC SODIUM DR 75 MG TABLET PO SCH ×2 (13:37→21:22)
[2018-09-04] MEDS: LISINOPRIL 20 MG TABLET PO SCH (14:42)
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
[2018-09-04] MEDS: SENNA 8.6 MG TABLET PO SCH (16:06)
[2018-09-04] MEDS: DOCUSATE SODIUM 250 MG CAPSULE PO SCH (16:06)
[2018-09-04] MEDS: ACETAMINOPHEN 325 MG TABLET PO PRN (19:26)
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
[2018-09-04] MEDS: ATORVASTATIN 40 MG TABLET PO SCH (21:22)
[2018-09-04] MEDS: GABAPENTIN 300 MG CAPSULE PO SCH (21:23)
[2018-09-05] MEDS: oxyCODONE 5 MG TABLET PO SCH ×3 (06:18→20:21)
[2018-09-05] MEDS: PANTOPRAZOLE 40 MG TABLET PO SCH (06:19)
[2018-09-05] MEDS: LORazepam 2 MG/ML VIAL IVP PRN (09:33)
[2018-09-05] MEDS: ENOXAPARIN 30 MG/0.3 ML SYRINGE SUBQ SCH (09:34)
[2018-09-05] MEDS: DICLOFENAC SODIUM DR 75 MG TABLET PO SCH ×2 (09:34→20:22)
[2018-09-05] MEDS: SENNA 8.6 MG TABLET PO SCH (09:34)
[2018-09-05] MEDS: ASPIRIN CHEW 81 MG TABLET PO SCH (09:34)
[2018-09-05] MEDS: SACCHAROMYCES BOULARDII 250 MG CAPSULE PO SCH ×2 (09:34→16:51)
[2018-09-05] MEDS: POLYETHYLENE GLYCOL 3350 17 GM PACKET PO SCH (09:35)
[2018-09-05] MEDS: CARVEDILOL 3.125 MG TABLET PO SCH ×2 (09:35→20:21)
[2018-09-05] MEDS: SODIUM CHLORIDE FLUSH 0.9% 10 ML SYRINGE IVP SCH ×4 (09:35→16:51)
[2018-09-05] MEDS: CLOPIDOGREL 75 MG TABLET PO SCH (09:35)
[2018-09-05] MEDS: DOCUSATE SODIUM 250 MG CAPSULE PO SCH (09:36)
[2018-09-05] MEDS: LISINOPRIL 20 MG TABLET PO SCH (09:39)
[2018-09-05] MEDS: GABAPENTIN 300 MG CAPSULE PO SCH (20:21)
[2018-09-05] MEDS: ATORVASTATIN 40 MG TABLET PO SCH (20:21)
[2018-09-05] MEDS: PHENOL THROAT SPRAY 177 ML MM PRN (23:57)
[2018-09-05] MEDS: ACETAMINOPHEN 325 MG TABLET PO PRN (23:58)
[2018-09-06] MEDS: SODIUM CHLORIDE FLUSH 0.9% 10 ML SYRINGE IVP SCH ×3 (03:59→16:25)
[2018-09-06] MEDS: ACETAMINOPHEN 325 MG TABLET PO PRN ×3 (04:21→17:57)
[2018-09-06] MEDS: PANTOPRAZOLE 40 MG TABLET PO SCH (06:16)
[2018-09-06] MEDS: oxyCODONE 5 MG TABLET PO SCH ×3 (06:16→15:32)
[2018-09-06] MEDS: SACCHAROMYCES BOULARDII 250 MG CAPSULE PO SCH ×2 (08:18→16:25)
[2018-09-06] MEDS: ASPIRIN CHEW 81 MG TABLET PO SCH (08:18)
[2018-09-06] MEDS: CLOPIDOGREL 75 MG TABLET PO SCH (08:18)
[2018-09-06] MEDS: CARVEDILOL 3.125 MG TABLET PO SCH ×2 (08:18→21:45)
[2018-09-06] MEDS: DICLOFENAC SODIUM DR 75 MG TABLET PO SCH ×2 (08:18→21:46)
[2018-09-06] MEDS: SENNA 8.6 MG TABLET PO SCH (08:19)
[2018-09-06] MEDS: DOCUSATE SODIUM 250 MG CAPSULE PO SCH (08:19)
[2018-09-06] MEDS: POLYETHYLENE GLYCOL 3350 17 GM PACKET PO SCH (08:19)
[2018-09-06] MEDS: LISINOPRIL 20 MG TABLET PO SCH (08:19)
[2018-09-06] MEDS: ENOXAPARIN 30 MG/0.3 ML SYRINGE SUBQ SCH (08:20)
[2018-09-06] MEDS: ATORVASTATIN 40 MG TABLET PO SCH (21:45)
[2018-09-06] MEDS: GABAPENTIN 300 MG CAPSULE PO SCH (21:46)
[2018-09-06] MEDS: LORazepam 2 MG/ML VIAL IVP PRN (21:46)
[2018-09-06] MEDS: SODIUM CHLORIDE FLUSH 0.9% 10 ML SYRINGE IVP PRN (21:47)
[2018-09-06] MEDS ORDERED: LORazepam 0.5 MG TABLET PO PRN (22:39)
[2018-09-07] MEDS: SODIUM CHLORIDE FLUSH 0.9% 10 ML SYRINGE IVP SCH ×2 (01:55→10:21)
[2018-09-07] MEDS: SODIUM CHLORIDE FLUSH 0.9% 10 ML SYRINGE IVP PRN (05:50)
[2018-09-07] MEDS: oxyCODONE 5 MG TABLET PO SCH (06:00)
[2018-09-07] MEDS: PANTOPRAZOLE 40 MG TABLET PO SCH (06:01)
[2018-09-07 07:37] VITALS: BP 142/71
[2018-09-07] MEDS: NITROGLYCERIN SL 0.4 MG TABLET SL PRN (08:11)
[2018-09-07] MEDS: POLYETHYLENE GLYCOL 3350 17 GM PACKET PO SCH (10:21)
[2018-09-07] MEDS: DOCUSATE SODIUM 250 MG CAPSULE PO SCH (10:21)
[2018-09-07] MEDS: SENNA 8.6 MG TABLET PO SCH (10:21)
[2018-09-07] MEDS: ASPIRIN CHEW 81 MG TABLET PO SCH (10:36)
[2018-09-07] MEDS: CLOPIDOGREL 75 MG TABLET PO SCH (10:36)
[2018-09-07] MEDS: SACCHAROMYCES BOULARDII 250 MG CAPSULE PO SCH (10:36)
[2018-09-07] MEDS: CARVEDILOL 3.125 MG TABLET PO SCH (10:36)
[2018-09-07] MEDS: LISINOPRIL 20 MG TABLET PO SCH (10:36)
[2018-09-07] MEDS: DICLOFENAC SODIUM DR 75 MG TABLET PO SCH (10:37)
[2018-09-07] MEDS: ENOXAPARIN 30 MG/0.3 ML SYRINGE SUBQ SCH (10:37)
== END 2018-09-07 13:38 | disposition home or self-care (01) | DRG 682 ==
LOC: EDUNIT# → ED 09:09 → MS2 13:35
PROVIDERS: ADMIT Nurse Practitioner; ATTEND Nurse Practitioner
DX: N30.00 Acute cystitis without hematuria (principal); N17.9 Acute kidney failure, unspecified; G93.41 Metabolic encephalopathy; E78.00 Pure hypercholesterolemia, unspecified; E87.1 Hypo-osmolality and hyponatremia; I10 Essential (primary) hypertension; I25.2 Old myocardial infarction; H91.90 Unspecified hearing loss, unspecified ear; Z90.49 Acquired absence of other specified parts of digestive tract; Z95.1 Presence of aortocoronary bypass graft; Z95.5 Presence of coronary angioplasty implant and graft; M19.90 Unspecified osteoarthritis, unspecified site; Z88.2 Allergy status to sulfonamides; M81.0 Age-related osteoporosis without current pathological fracture; J32.9 Chronic sinusitis, unspecified; Z79.82 Long term (current) use of aspirin; Y09 Assault by unspecified means; E86.0 Dehydration; S09.90XA Unspecified injury of head, initial encounter; I25.10 Atherosclerotic heart disease of native coronary artery without angina pectoris; K21.9 Gastro-esophageal reflux disease without esophagitis; K44.9 Diaphragmatic hernia without obstruction or gangrene; E78.5 Hyperlipidemia, unspecified; F41.9 Anxiety disorder, unspecified; Z91.81 History of falling; G47.00 Insomnia, unspecified; L40.9 Psoriasis, unspecified; J45.909 Unspecified asthma, uncomplicated; G30.9 Alzheimer's disease, unspecified; F02.80 Dementia in other diseases classified elsewhere, unspecified severity, without behavioral disturbance, psychotic disturbance, mood disturbance, and anxiety; R51 Headache; H54.7 Unspecified visual loss; F32.9 Major depressive disorder, single episode, unspecified; F43.10 Post-traumatic stress disorder, unspecified; N12 Tubulo-interstitial nephritis, not specified as acute or chronic; B96.20 Unspecified Escherichia coli [E. coli] as the cause of diseases classified elsewhere; Z66 Do not resuscitate; R07.9 Chest pain, unspecified
CPT/HCPCS: 36415; 70450; 71045; 72125; 80053; 80069; 81001; 81003; 83605; 83690; 83735; 83880; 84100; 84484; 85025; 87040; 87086; 93005; 96361; 96365; 99284; 99285

== ENCOUNTER 2022-08-04 07:44 | Outpatient (CLI) | payer MEDICARE, OTHER | END 2022-08-04 07:45 | disposition critical access hospital (66) | LOC: EMS 07:44 | DX: K92.0 Hematemesis (principal) | CPT/HCPCS: A0425; A0427 ==

== ENCOUNTER 2022-08-04 08:03 | Observation (INO) | payer MEDICARE, OTHER ==
[2022-08-04] MEDS ORDERED: PANTOPRAZOLE 40 MG VIAL IV STA (08:16)
[2022-08-04] MEDS ORDERED: ONDANSETRON 4 MG/2 ML VIAL IVP STA (08:16)
--- NOTE | 2022-08-04 08:22 | ED Physician Documentation ---
PD HPI GI BLEED - Stated complaint Stated Complaint: VOMITING BLOOD - History obtained from History obtained from: Patient, Caregiver - Additional information Additional information: Patient is an 89-year-old with a history of coronary artery disease and peptic ulcer disease presenting for evaluation of hematemesis that started suddenly this morning. Patient reports having some epigastric abdominal discomfort for a few days and while in the bathroom this morning had several episodes of Vomiting bright red blood with clots.She denies a history of similar symptoms. She does not take a blood thinner.She does take a baby aspirin.Per her caregiver, Patient has recently asked her to get Pepto-Bismol and has been taking this over the last few days.Patient denies blood in her stools or urine. She denies coughing blood.She denies chest pain or difficulty breathing.Denies drug abuse or alcohol use. Review of Systems Constitutional: denies: Fever Cardiac: denies: Chest pain / pressure Respiratory: denies: Dyspnea GI: reports: Abdominal Pain, Hematemesis. 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 Cardiovascular: CABG, Coronary stent, Cardiac catheterization, Angioplasty HEENT: Cataracts - Present Medications Home Medications: Ambulatory Orders Medication Instructions Recorded Confirmed Atorvastatin Calcium [Lipitor] 80 mg PO QPM 06/03/13 08/30/18 carvediloL [Coreg] 6.25 mg PO BID 06/03/13 08/30/18 lisinopriL [Prinivil] 30 mg PO DAILY 06/03/13 08/30/18 Adalimumab [Humira] 40 mg SUBQ Q14D 06/04/13 08/30/18 Pantoprazole [Protonix] 40 mg PO QDAC 03/19/16 08/30/18 Zolpidem [Ambien] 10 mg PO QPM 03/19/16 08/30/18 Clopidogrel [Plavix] 75 mg PO DAILY tablet 07/11/16 08/30/18 Aspirin [Children's Aspirin] 81 mg PO DAILY 11/13/17 08/30/[address] [Voltaren] 75 mg PO BID 08/30/18 08/30/18 Folic Acid 1 mg PO WESLY@0900 08/30/18 08/30/18 Gabapentin 300 mg PO QPM 08/30/18 08/30/18 oxyCODONE [Roxicodone] 5 mg PO TID 08/30/18 08/30/18 Acetaminophen [Tylenol] 650 mg PO Q4HR PRN tablet 09/04/18 Nitroglycerin [Nitrostat] 0.4 mg SL Q5MIN PRN tablet 09/04/18 - Allergies Allergies/Adverse Reactions: Allergies Allergy/AdvReac Type Severity Reaction Status Date / Time Rauwolfia Alkaloids Allergy Unknown unknown Verified 08/22/18 04:14 Sulfa (Sulfonamide Allergy Unknown unknown Verified 08/22/18 04:14 Antibiotics) Thiazides Allergy Unknown unknown Verified 08/22/18 04:14 mirtazapine [From Remeron] AdvReac heart Verified 08/22/18 04:14 palpitations - Social History Does the pt smoke?: No Smoking Status: Former smoker Does the pt drink ETOH?: No Does the pt have substance abuse?: No - Immunizations Immunizations are current?: Yes - POLST Patient has POLST: No POLST Status: DNR PD ED PE NORMAL - General General: Alert and oriented X 3, Well developed/nourished, Other (Clothing covered in bright red blood as is her hair) - HEENT HEENT: Atraumatic, Pharynx benign (Dried blood in oropharynx, no signs of active bleeding) - Neck Neck: Supple, no meningeal sign - Cardiac Cardiac: Other (Tachycardic, regular rhythm) - Respiratory Respiratory: No respiratory distress, Clear bilaterally - Abdomen Abdomen: Normal bowel sounds, Soft, Non distended, Other (Mild epigastric tenderness, no rebound, no guarding) - Derm Derm: Warm and dry - Neuro Neuro: Normal speech Results - Vitals Vitals: Vital Signs - 24 hr 08/04/22 08/04/22 08/04/22 08:17 08:49 09:19 Temperature 36.7 C Heart Rate 104 H 106 H 99 Respiratory 24 16 18 Rate Blood Pressure 135/96 H 84/54 L 91/62 O2 Saturation 99 100 99 08/04/22 08/04/22 08/04/22 09:30 10:30 11:00 Temperature Heart Rate 102 H 105 H 108 H Respiratory 15 24 25 H Rate Blood Pressure 122/78 120/63 94/68 O2 Saturation 100 100 100 08/04/22 08/04/22 11:30 12:00 Temperature Heart Rate 99 99 Respiratory 19 22 Rate Blood Pressure 109/67 153/84 H O2 Saturation 100 100 Oxygen O2 Source Room air - EKG (time done) 0823 Rate: Rate (enter#) (101) Rhythm: Sinus tachycardia Intervals: No: Prolonged QT Ischemia: No: ST elevation c/w ischemia - Labs Labs: Laboratory Tests 08/04/22 08/04/22 08/04/22 08:31 08:31 08:31 WBC 9.7 RBC 3.86 L Hgb 10.3 L Hct 33.0 L MCV 85.5 MCH 26.7 L MCHC 31.2 L RDW 16.3 H Plt Count 264 MPV 9.2 Neut # (Auto) 6.8 H Lymph # (Auto) 1.9 Curry # (Auto) 0.5 Eos # (Auto) 0.3 Baso # (Auto) 0.1 Absolute Nucleated RBC 0.00 Nucleated RBC % 0.0 PT 11.5 INR 1.0 Sodium Potassium Chloride Carbon Dioxide Anion Gap BUN Creatinine Estimated GFR (MDRD) Glucose Calcium Total Bilirubin AST ALT Alkaline Phosphatase Total Protein Albumin Globulin Albumin/Globulin Ratio Lipase SARS-CoV-2 (PCR) Blood Type O POSITIVE Antibody Screen NEGATIVE 08/04/22 08/04/22 08:31 08:31 WBC RBC Hgb Hct MCV MCH MCHC RDW Plt Count MPV Neut # (Auto) Lymph # (Auto) Curry # (Auto) Eos # (Auto) Baso # (Auto) Absolute Nucleated RBC Nucleated RBC % PT INR Sodium 134 L Potassium 3.3 L Chloride 101 Carbon Dioxide 22 Anion Gap 11.0 BUN 61 H Creatinine 0.8 Estimated GFR (MDRD) 68 L Glucose 134 H Calcium 8.7 Total Bilirubin 0.5 AST 19 ALT 15 Alkaline Phosphatase 42 Total Protein 7.0 Albumin 3.9 Globulin 3.1 Albumin/Globulin Ratio 1.3 Lipase 43 SARS-CoV-2 (PCR) NOT DETECTED Blood Type Antibody Screen PD Medical Decision Making - ED course Complexity details: reviewed results, re-evaluated patient, d/w patient ED course: Patient seen for hematemesis. She arrives covered in blood. She is slightly tachycardic but otherwise vital signs appear stable. Her labs were reviewed which are significant for mild anemia With a hemoglobin that is slightly lower than prior results from a few years ago In 2019. K at 3.3 which I replaced IV. Normal INR. Chest x-ray which I reviewed does not show signs of free air. Patient is now requiring oxygen and has had no further episodes while here. She denies a history of alcohol abuse or varices. She does report a history of peptic ulcer disease which I suspect could be the source. She did receive IV fluids, IV Zofran and Protonix. I did consult with general surgery. She has minimal abdominal discomfort and no peritoneal signs. Plan for admission with EGD. Patient is comfortable with plan for admission. 0850 - D/W Dr. Whitlock, plan to scope her today. He requested medicine to admit. Currently there are no [facility] beds available which he is aware of. 1030 - D/W Dr. Rosado who will admit the patient For further management. Departure - Departure Disposition: [facility]/Mckay Discharge Date/Time: 08/04/22 13:38
[2022-08-04 08:33] LABS: BASOPHILS # (AUTO) 0.1 10^3/uL (0.0-0.1); BASOPHILS % (AUTO) 0.5 %; EOSINOPHILS # (AUTO) 0.3 10^3/uL (0.0-0.7); EOSINOPHILS % (AUTO) 3.4 %; HGB - HEMOGLOBIN 10.3 g/dL (12.0-16.0); LYMPHOCYTES # (AUTO) 1.9 10^3/uL (1.5-3.5); LYMPHOCYTES % (AUTO) 20.1 %; MEAN CORPUSCULAR HEMOGLOBIN 26.7 pg (27.0-31.0); MEAN CORPUSCULAR HGB CONC 31.2 g/dL (32.0-36.0); MEAN CORPUSCULAR VOLUME 85.5 fL (81.0-99.0); MEAN PLATELET VOLUME 9.2 fL (7.9-10.8); MONOCYTES # (AUTO) 0.5 10^3/uL (0.0-1.0); MONOCYTES % (AUTO) 5.1 %; NEUTROPHILS # (AUTO) 6.8 10^3/uL (1.5-6.6); NEUTROPHILS % (AUTO) 70.7 %; PLT - PLATELET COUNT 264 10^3/uL (130-450); RED BLOOD COUNT 3.86 10^6/uL (4.20-5.40); RED CELL DISTRIBUTION WIDTH 16.3 % (12.0-15.0); WHITE BLOOD COUNT 9.7 x10^3/uL (4.8-10.8)
[2022-08-04 08:48] LABS: ALBUMIN 3.9 g/dL (3.2-5.5); ALBUMIN/GLOBULIN RATIO 1.3 (1.0-2.2); BILIRUBIN,TOTAL 0.5 mg/dL (0.2-1.0); CALCIUM 8.7 mg/dL (8.5-10.3); CREATININE 0.8 mg/dL (0.4-1.0); POTASSIUM 3.3 mmol/L (3.5-5.0)
--- NOTE | 2022-08-04 08:48 | XRAY Report ---
PROCEDURE: Chest 1 View X-Ray INDICATIONS: weak TECHNIQUE: One view of the chest was acquired. COMPARISON: Chest x-ray 08/30/2018 FINDINGS: Surgical changes and devices: Sternal wires are present. Lungs and pleura: No pleural effusions or pneumothorax. Lung apices are obscured secondary to head p ositioning. Mediastinum: Mediastinal contours appear normal. Heart size is normal. Bones and chest wall: No suspicious bony lesions. Overlying soft tissues appear unremarkable. IMPRESSION: No acute pulmonary process. Reviewed by: Elizabeth Poon MD on 08/04/2022 8:[address] [facility] Approved by: Elizabeth Poon MD on 08/04/2022 8:[address] [facility] Station ID: [id number]
[2022-08-04] MEDS ORDERED: SODIUM CHLORIDE 0.9% 1,000 ML IV STA ×2 (08:53→11:49)
[2022-08-04 08:58] LABS: PT - PROTHROMBIN TIME 11.5 secs (9.9-12.6)
[2022-08-04] MEDS: POTASSIUM CHLOR 10 MEQ/100 ML 10 MEQ/100 ML BAG IV SCH ×2 (09:49→11:10)
[2022-08-04] MEDS ORDERED: ONDANSETRON ODT 4 MG TABLET TL PRN (12:10)
[2022-08-04] MEDS ORDERED: MORPHINE 2 MG/ML CARPUJECT IVP PRN (12:10)
[2022-08-04] MEDS ORDERED: ONDANSETRON 4 MG/2 ML VIAL IVP PRN (12:10)
[2022-08-04] MEDS ORDERED: SODIUM CHLORIDE FLUSH 0.9% 10 ML SYRINGE IVP PRN (12:10)
--- NOTE | 2022-08-04 14:10 | ANESTHESIA ---
Pre-Anesthesia VS, & Labs - Diagnosis GI Bleed - Procedure EGD Vital Signs: Temp Pulse Resp BP Pulse Ox O2 Flow Rate 36.9 C 101 H 20 127/74 93 08/04/22 13:40 08/04/22 13:40 08/04/22 13:40 08/04/22 13:40 08/04/22 13:40 Height: 5 ft 1 in Weight (kg): 53.9 kg Body Mass Index: 22.4 BMI Classification: Normal - NPO >8 hours - Is Patient ?: No - Lab Results Current Lab Results: Laboratory Tests 08/04/22 08:31: Sodium 134 L, Potassium 3.3 L, Chloride 101, Carbon Dioxide 22, Anion Gap 11.0, BUN 61 H, Creatinine 0.8, Estimated GFR (MDRD) 68 L, Glucose 134 H, Calcium 8.7, Total Bilirubin 0.5, AST 19, ALT 15, Alkaline Phosphatase 42, Total Protein 7.0, Albumin 3.9, Globulin 3.1, Albumin/Globulin Ratio 1.3, Lipase 43 08/04/22 08:31: PT 11.5, INR 1.0 08/04/22 08:31: WBC 9.7, RBC 3.86 L, Hgb 10.3 L, Hct 33.0 L, MCV 85.5, MCH 26.7 L, MCHC 31.2 L, RDW 16.3 H, Plt Count 264, MPV 9.2, Neut # (Auto) 6.8 H, Lymph # (Auto) 1.9, [place] # (Auto) 0.5, Eos # (Auto) 0.3, Baso # (Auto) 0.1, Absolute Nucleated RBC 0.00, Nucleated RBC % 0.0 08/04/22 08:31: Blood Type O POSITIVE, Antibody Screen NEGATIVE Lab results reviewed: Yes Fish Bones: 08/04/22 08:31 08/04/22 08:31 Home Medications and Allergies Active Medications Sodium Chloride (Normal Saline 0.9%) 1,000 mls @ 100 mls/hr IV .Q10H STA Stop: 08/04/22 21:48 Last Admin: 08/04/22 12:33 Dose: 100 mls/hr Morphine Sulfate (Morphine 2 Mg/Ml Carpuject) 2 mg IVP Q2HR PRN PRN Reason: Pain 8 to 10 Ondansetron HCl (Ondansetron Odt 4 Mg Tablet) 4 mg TL Q6HR PRN PRN Reason: Nausea / Vomiting Ondansetron HCl (Ondansetron 4 Mg/2 Ml Vial) 4 mg IVP Q6HR PRN PRN Reason: Nausea / Vomiting Sodium Chloride (Sodium Chloride Flush 0.9% 10 Ml Syringe) 10 ml IVP PRN PRN PRN Reason: NEEDED PER PROVIDER ORDERS Sodium Chloride (Sodium Chloride Flush 0.9% 10 Ml Syringe) 10 ml IVP 0100,0900,1700 BROOKS Atorvastatin Calcium [Lipitor] 80 mg PO QPM 06/03/13 carvediloL [Coreg] 6.25 mg PO BID 06/03/13 lisinopriL [Prinivil] 30 mg PO DAILY 06/03/13 Adalimumab [Humira] 40 mg SUBQ Q14D 06/04/13 Pantoprazole [Protonix] 40 mg PO QDAC 03/19/16 Zolpidem [Ambien] 10 mg PO QPM 03/19/16 Aspirin [Children's Aspirin] 81 mg PO DAILY 11/13/[address] [Voltaren] 75 mg PO BID 08/30/18 Folic Acid 1 mg PO SUMOTUWETHSA@0900 08/30/18 Gabapentin 300 mg PO QPM 08/30/18 oxyCODONE [Roxicodone] 5 mg PO TID 08/30/18 Allergies/Adverse Reactions: Allergies Allergy/AdvReac Type Severity Reaction Status Date / Time Rauwolfia Alkaloids Allergy Unknown unknown Verified 08/22/18 04:14 Sulfa (Sulfonamide Allergy Unknown unknown Verified 08/22/18 04:14 Antibiotics) Thiazides Allergy Unknown unknown Verified 08/22/18 04:14 mirtazapine [From Remeron] AdvReac heart Verified 08/22/18 04:14 palpitations Anes History & Medical History - Anesthetic History Anesthesia Complications: reports: No previous complications - Medical History Cardiovascular: reports: Hypertension, High cholesterol, Coronary artery di sease, [place], Murmur, Other Pulmonary: reports: Asthma Gastrointestinal: reports: GERD Urinary: reports: Nocturia, Frequency Neuro: reports: Alzhiemer's, Dementia, Head injury, Headaches Musculoskeletal: reports: Osteoarthritis, Osteoporosis Endocrine/Autoimmune: reports: None Blood Disorders: reports: None Skin: reports: Psoriasis Smoking Status: Former smoker Psychosocial: reports: No issues indicated History of Cancer?: No - Surgical History General: reports: Appendectomy Eyes Ears Nose Throat (EENT): reports: Cataracts Cardiothoracic: reports: CABG, Coronary stent, Cardiac catheterization, Angioplasty Urologic: reports: Bladder surgery Gynecologic: reports: Hysterectomy Exam General: Alert, Oriented x3, Cooperative, No acute distress Dental: Dentures full Upper, Dentures full Lower Mouth Openin Fingerbreadth Neck Mobility: Normal Mallampati classification: II Thyromental Distance: 4-6 cm Mental/Cognitive Status: Alert/Oriented X3, Normal for patient Plan Anesthesia Type: General, Total IV Consent for Procedure(s) Verified and Reviewed: Yes Code Status: Attempt Resuscitation ASA classification: 3-Severe systemic disease Is this case an emergency?: Yes
[2022-08-04] MEDS ORDERED: PROPOFOL 200 MG/20 ML VIAL IVP ONE (14:23)
--- NOTE | 2022-08-04 14:35 | CONSULTATION NOTE ---
Referring Provider Consult Date: 08/04/22 Chief Complaint - Chief Complaint Chief Complaint: throwing up blood History of Present Illness - History Obtained From Records Reviewed: yes History obtained from: pt Exam Limitations: none - History of Present Illness HPI Comment/Other: few days of epigastric pain. throw up blood this am. No bleeding since. denies previous problems and weight loss. mostly talks about the stress she has been under with her History - Past Medical History Cardiovascular: reports: Hypertension, High cholesterol, Coronary artery disease, [place], Murmur, Other Respiratory: reports: Asthma Neuro: reports: Alzhiemer's, Dementia, Head injury, Headaches Endocrine/Autoimmune: reports: None GI: reports: GERD : reports: Nocturia, Frequency HEENT: reports: Chronic vision loss, Chronic hearing loss Psych: reports: Depression, Anxiety, Post traumatic stress disorder Musculoskeletal: reports: Osteoarthritis, Osteoporosis Derm: reports: Psoriasis MRSA Hx?: No - Past Surgical History General: reports: 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 She requests to be a DNR when asked. - Substance History Use: Uses substance without health or social issues: NONE - POLST Patient has POLST: No POLST Status: DNR Meds/Allgy - Home Medications Home Medications: Ambulatory Orders Medication Instructions Recorded Confirmed Atorvastatin Calcium [Lipitor] 80 mg PO QPM 06/03/13 08/30/18 carvediloL [Coreg] 6.25 mg PO BID 06/03/13 08/30/18 lisinopriL [Prinivil] 30 mg PO DAILY 06/03/13 08/30/18 Adalimumab [Humira] 40 mg SUBQ Q14D 06/04/13 08/30/18 Pantoprazole [Protonix] 40 mg PO QDAC 03/19/16 08/30/18 Zolpidem [Ambien] 10 mg PO QPM 03/19/16 08/30/18 Clopidogrel [Plavix] 75 mg PO DAILY tablet 07/11/16 08/30/18 Aspirin [Children's Aspirin] 81 mg PO DAILY 11/13/17 08/30/[address] [Voltaren] 75 mg PO BID 08/30/18 08/30/18 Folic Acid 1 mg PO SUMOTUWETHSA@0900 08/30/18 08/30/18 Gabapentin 300 mg PO QPM 08/30/18 08/30/18 oxyCODONE [Roxicodone] 5 mg PO TID 08/30/18 08/30/18 Acetaminophen [Tylenol] 650 mg PO Q4HR PRN tablet 09/04/18 Nitroglycerin [Nitrostat] 0.4 mg SL Q5MIN PRN tablet 09/04/18 - Allergies Allergies/Adverse Reactions: Allergies Allergy/AdvReac Type Severity Reaction Status Date / Time Rauwolfia Alkaloids Allergy Unknown unknown Verified 08/22/18 04:14 Sulfa (Sulfonamide Allergy Unknown unknown Verified 08/22/18 04:14 Antibiotics) Thiazides Allergy Unknown unknown Verified 08/22/18 04:14 mirtazapine [From Remeron] AdvReac heart Verified 08/22/18 04:14 palpitations Review of Systems - Constitutional Constitutional: reports: Fatigue (10 pt ros as above otherwise unremarkable) Exam - Vital Signs Reviewed Vital Signs: Yes Vital Signs: Vital Signs x48h Temp Pulse Pulse Resp BP BP Pulse Ox 08/04/22 13:40 36.9 C 101 H 20 127/74 93 08/04/22 13:00 36.3 C L 100 18 111/62 100 08/04/22 12:00 99 22 153/84 H 100 08/04/22 11:30 99 19 109/67 100 08/04/22 11:00 108 H 25 H 94/68 100 08/04/22 10:30 105 H 24 120/63 100 08/04/22 09:30 102 H 15 122/78 100 08/04/22 09:19 99 18 91/62 99 08/04/22 08:49 106 H 16 84/54 L 100 08/04/22 08:17 36.7 C 104 H 24 135/96 H 99 - Physical Exam General Appearance: positive: No acute distress, Alert Eyes Bilateral: positive: PERRL, EOMI, No scleral icterus ENT: positive: No signs of dehydration Neck: positive: No JVD, Trachea midline Respiratory: positive: No respiratory distress, Breath sounds nml Cardiovascular: positive: Regular rate & rhythm Abdomen: positive: Non-tender, No distention Neurologic/Psychiatric: positive: Oriented x3 Conclusion/Plan - Problem List (1) Hematemesis of fresh blood Conclusion/Plan: plan egd. parq held and consent obtained - Lab Results Lab results reviewed: Yes Fish Bones: 08/04/22 08:31 08/04/22 08:31
--- NOTE | 2022-08-04 14:55 | OPERATIVE REPORT ---
Operative Report - General Admit Date: 08/04/22 Procedure Date: 08/04/22 Planned Procedure: EGD Pre-Op Diagnosis: ugi bleed/ hematemesis Procedure Performed: EGD with biopsy Post Op Diagnosis: small shallow non bleeding ulcer cardia stomach - Procedure Note Primary Surgeon: eunice conrad Anesthesia Technique: MAC Pathology: antrum Estimated Blood Loss (mL): 0 Indications: hematemesis Findings: as above. small hiatal hernia otherwise normal egd Complications: none
--- NOTE | 2022-08-04 15:02 | ANESTHESIA POST OP EVALUATION ---
Anesthesia Post Eval - Post Anesthesia Eval Vitals: Last Vital Signs Temp 36.9 C 08/04/22 13:40 Pulse 101 H 08/04/22 13:40 Resp 20 08/04/22 13:40 BP 127/74 08/04/22 13:40 Pulse Ox 93 08/04/22 13:40 O2 Flow Rate CV Function Including HR & BP: Stable Pain Control: Satisfactory Nausea & Vomiting: Negative Mental Status: Baseline Respiratory Status: Airway Patent Hydration Status: Satisfactory Anesthesia Complications: None
--- NOTE | 2022-08-04 15:03 | HISTORY & PHYSICAL EXAMINATION ---
Chief Complaint - Chief Complaint Chief Complaint: Vomiting blood History of Present Illness - Admitted From Admitted From:: [facility] ED - History Obtained From Records Reviewed: Yes History obtained from: ED Exam Limitations: None - History of Present Illness HPI Comment/Other: 89 year old female with history of coronary artery disease and peptic ulcer disease presented to the ED today for evaluation of hematemesis that started suddenly this morning. She reports having some epigastric abdominal discomfort for a few days.This morning she had several episodes of vomiting bright red blood with clots. She denies history of similar symptoms. She takes once daily aspirin and clopidogrel. Per her caregiver, she has been taking Pepto-Bismol the last few days. She denies blood in her urine or stool. She denies coughing blood. She denies chest pain or difficulty breathing. She denies drug or alcohol use. The general surgeon was consulted and she had an upper endoscopy today. She had a small non-bleeding shallow ulcer in the cardia of the stomach and a small hiatal hernia. A biopsy was performed and sent for histology. Post endoscopy, she is alert, oriented, and conversant. She is aware that she had an endoscopy and that they found a stomach ulcer. She goes off on tangential stories but she answers questions appropriately when asked. She is difficult to understand because she does not have her original teeth and she does not have her dentures. She denies nausea, vomiting or abdominal pain. She denies chest pain or difficulty breathing. 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 She says she has no living children. She indicates she was many years ago with twins and delivered stillbirths.) Social History Notes: Patient was never a smoker, denies ETOH, and illicit drug use. She requests to be a DNR when asked. - Substance History Use: Uses substance without health or social issues: NONE - POLST Patient has POLST: No POLST Status: DNR Meds/Allgy - Home Medications Home Medications: Ambulatory Orders Medication Instructions Recorded Confirmed Atorvastatin Calcium [Lipitor] 80 mg PO QPM 06/03/13 08/30/18 carvediloL [Coreg] 6.25 mg PO BID 06/03/13 08/30/18 lisinopriL [Prinivil] 30 mg PO DAILY 06/03/13 08/30/18 Adalimumab [Humira] 40 mg SUBQ Q14D 06/04/13 08/30/18 Pantoprazole [Protonix] 40 mg PO QDAC 03/19/16 08/30/18 Zolpidem [Ambien] 10 mg PO QPM 03/19/16 08/30/18 Clopidogrel [Plavix] 75 mg PO DAILY tablet 07/11/16 08/30/18 Aspirin [Children's Aspirin] 81 mg PO DAILY 11/13/17 08/30/[address] [Voltaren] 75 mg PO BID 08/30/18 08/30/18 Folic Acid 1 mg PO SUMOTUWETHSA@0900 08/30/18 08/30/18 Gabapentin 300 mg PO QPM 08/30/18 08/30/18 oxyCODONE [Roxicodone] 5 mg PO TID 08/30/18 08/30/18 Acetaminophen [Tylenol] 650 mg PO Q4HR PRN tablet 09/04/18 Nitroglycerin [Nitrostat] 0.4 mg SL Q5MIN PRN tablet 09/04/18 - Allergies Allergies/Adverse Reactions: Allergies Allergy/AdvReac Type Severity Reaction Status Date / Time Rauwolfia Alkaloids Allergy Unknown unknown Verified 08/22/18 04:14 Sulfa (Sulfonamide Allergy Unknown unknown Verified 08/22/18 04:14 Antibiotics) Thiazides Allergy Unknown unknown Verified 08/22/18 04:14 mirtazapine [From Remeron] AdvReac heart Verified 08/22/18 04:14 palpitations Review of Systems - Constitutional Constitutional: reports: Other (No original teeth) - Ears, Nose & Throat Ears, Nose & Throat: reports: Hearing loss, Dentures (left them at home) - All Other Systems All Other Systems: reports: Reviewed and negative Prior Level of Functionality: Ambulates on her own. she lives at home with a live-in caregiver to help with tasks of daily living Exam - Vital Signs Vital Signs: Vital Signs x48h Temp Pulse Pulse Resp BP BP Pulse Ox 08/04/22 13:40 36.9 C 101 H 20 127/74 93 08/04/22 13:00 36.3 C L 100 18 111/62 100 08/04/22 12:00 99 22 153/84 H 100 08/04/22 11:30 99 19 109/67 100 08/04/22 11:00 108 H 25 H 94/68 100 08/04/22 10:30 105 H 24 120/63 100 08/04/22 09:30 102 H 15 122/78 100 08/04/22 09:19 99 18 91/62 99 08/04/22 08:49 106 H 16 84/54 L 100 08/04/22 08:17 36.7 C 104 H 24 135/96 H 99 - Physical Exam General Appearance: positive: No acute distress Eyes Bilateral: positive: Normal inspection, PERRL, EOMI, No lid inflammation, Conjunctivae nml, No scleral icterus ENT: positive: Other (no original teeth. She left her dentures at home) Neck: positive: Nml inspection, Thyroid nml, No JVD, Trachea midline Respiratory: positive: Chest non-tender, No respiratory distress, Breath sounds nml Cardiovascular: positive: Regular rate & rhythm, No murmur, No gallop Peripheral Pulses: positive: 2+ Abdomen: positive: Non-tender, Nml bowel sounds, No distention Skin: positive: Color nml, No rash, Warm Extremities: positive: Non-tender, Full ROM, Nml appearance, No pedal edema Neurologic/Psychiatric: positive: Oriented x3, Motor nml, Sensation nml, Mood/affect nml Conclusion/Plan - Problem List (1) Gastric ulcer due to nonsteroidal antiinflammatory drug (NSAID) therapy Conclusion/Plan: She had a small non-bleeding shallow ulcer in the cardia of the stomach Plan: Soft diet in recovery. She can discharge tomorrow if doing well. Avoid NSAIDs, including her 81 mg aspirin. Continue PPI daily 30 minutes before a meal. Await biopsy results. (2) Hiatal hernia Conclusion/Plan: She presented with hematemesis and anemia. Found small hiatal hernia on endoscopy. Plan: Soft diet in recovery. She can discharge tomorrow if doing well. Monitor for shortness of breath and chest pain. Continue PPI daily 30 minutes before a meal. Avoid large meals, alcohol, eating right before bed, and acidic foods. (3) Hematemesis Conclusion/Plan: Due to gastric ulcer, most likey aspirin induced hemorrhagic gastritis. Plan: Had upper endoscopy. Monitor for nausea, vomiting. Monitor blood pressure and oxygen. Stop 81 mg aspirin. She can discharge tomorrow if she is doing well. Qualifiers: Nausea presence: without nausea Qualified Code(s): K92.0 - Hematemesis (4) Anemia Conclusion/Plan: Due to gastric bleeding. RBC: 3.86 Hgb 10.3 Hct 33 Her hemoglobin is greater than 10 and her bleeding has stopped. No concern that this time. Qualifiers: Anemia type: iron deficiency Iron deficiency anemia type: chronic blood loss Qualified Code(s): D50.0 - Iron deficiency anemia secondary to blood loss (chronic) - Lab Results Lab results reviewed: Yes Fish Bones: 08/04/22 15:29 08/04/22 08:31 - Diagnostic Imaging Results Diagnostic Imaging Results: positive: Final report reviewed Diagnostic Imaging Results Comments: Upper endoscopy: Small non-bleeding shallow ulcer - cardia. Small hiatal hernia - EKG Results EKG Interpreted Independently: No EKG Comparison: Old EKG unavailable EKG Findings: Sinus tachycardia. Inferior infarct, age indeterminate. Atrial premature complex.
[2022-08-04 15:33] LABS: HCT - HEMATOCRIT 25.1 % (37.0-47.0); HGB - HEMOGLOBIN 8.1 g/dL (12.0-16.0); MEAN CORPUSCULAR HEMOGLOBIN 27.3 pg (27.0-31.0); MEAN CORPUSCULAR HGB CONC 32.3 g/dL (32.0-36.0); MEAN CORPUSCULAR VOLUME 84.5 fL (81.0-99.0); RED BLOOD COUNT 2.97 10^6/uL (4.20-5.40); RED CELL DISTRIBUTION WIDTH 16.3 % (12.0-15.0); WHITE BLOOD COUNT 8.5 x10^3/uL (4.8-10.8)
[2022-08-04] MEDS: SODIUM CHLORIDE FLUSH 0.9% 10 ML SYRINGE IVP SCH (17:06)
[2022-08-04] MEDS ORDERED: MAG HYDROX/AL HYDROX/SIMETH 30 ML UDC PO PRN (21:45)
[2022-08-04] MEDS ORDERED: ACETAMINOPHEN 325 MG TABLET PO PRN (21:46)
[2022-08-05] MEDS: SODIUM CHLORIDE FLUSH 0.9% 10 ML SYRINGE IVP SCH ×2 (02:46→11:29)
[2022-08-05 06:03] LABS: CALCIUM 8.5 mg/dL (8.5-10.3); CREATININE 0.9 mg/dL (0.4-1.0); POTASSIUM 4.1 mmol/L (3.5-5.0)
[2022-08-05] MEDS ORDERED: PANTOPRAZOLE 40 MG TABLET PO SCH (07:00)
[2022-08-05 08:02] LABS: BASOPHILS % (AUTO) 0.4 %; EOSINOPHILS # (AUTO) 0.2 10^3/uL (0.0-0.7); EOSINOPHILS % (AUTO) 2.9 %; HCT - HEMATOCRIT 23.9 % (37.0-47.0); HGB - HEMOGLOBIN 7.7 g/dL (12.0-16.0); LYMPHOCYTES # (AUTO) 1.4 10^3/uL (1.5-3.5); LYMPHOCYTES % (AUTO) 19.2 %; MEAN CORPUSCULAR HEMOGLOBIN 27.5 pg (27.0-31.0); MEAN CORPUSCULAR HGB CONC 32.2 g/dL (32.0-36.0); MEAN CORPUSCULAR VOLUME 85.4 fL (81.0-99.0); MEAN PLATELET VOLUME 9.9 fL (7.9-10.8); MONOCYTES # (AUTO) 0.4 10^3/uL (0.0-1.0); NEUTROPHILS # (AUTO) 5.1 10^3/uL (1.5-6.6); NEUTROPHILS % (AUTO) 71.2 %; PLT - PLATELET COUNT 206 10^3/uL (130-450); RED CELL DISTRIBUTION WIDTH 16.6 % (12.0-15.0); WHITE BLOOD COUNT 7.2 x10^3/uL (4.8-10.8)
--- NOTE | 2022-08-05 08:12 | PROVIDER PROGRESS NOTE ---
Subjective - Prog Note Date Prog Note Date: 08/05/22 Prog Note Time: 08:03 - Subjective Pt reports feeling: Improved Subjective: 89 year old female with history of coronary artery disease and peptic ulcer disease presented to the ED yesterday for evaluation of large volume hematemesis that started suddenly yesterday morning. She reported having some epigastric abdominal discomfort a few days prior and taking Pepto-bismol for relief. Yesterday morning she had several episodes of vomiting bright red blood with clots that covered her hair and the front of her clothing. She denied history of similar symptoms. Her home medications included aspirin and clopidogrel. Her EGD showed a small non-bleeding ulcer in the cardia of the stomach and small hiatal hernia. A biopsy was sent for histology. No varices. No history of alcohol abuse. Her hemoglobin yesterday was 10.3 not requiring transfusion. Her hemoglobin dropped today to 8.1 warranting transfusion due to rapid decline and her preexisting CAD. She is hemodynamically stable without respiratory or cardiac symptoms. She is alert and oriented. She says she feels tired, but she was very conversant and friendly and was telling me stories about her past and her culture. She says that she feels cold, but she was talking with her hands outside of the blankets and she wasn't shivering and no piloerection. Her skin is warm to the touch. Her capillary refill in her fingernails is diminished and she has dried blood under a couple of her nails. She was nauseous this morning after drinking milk, but she did not vomit. She says that she feels like she is urinating more than usual. She denies dysuria. She had a headache earlier this morning but it has resolved. She denies abdominal pain, chest pain, or difficulty breathing. Objective - Vital Signs/Intake & Output Intake & Output: Intake & Output 08/02/22 08/03/22 08/04/22 08/05/22 23:59 23:59 23:59 23:59 Intake Total 2200 500 Output Total 1150 550 Balance 1050 -50 - Objective General Appearance: positive: No acute distress Eyes Bilateral: positive: Normal inspection, PERRL, EOMI, No lid inflammation, Conjunctivae nml, No scleral icterus ENT: positive: ENT inspection nml, Pharynx nml, No signs of dehydration Neck: positive: Nml inspection, Thyroid nml, No JVD, Trachea midline Respiratory: positive: Chest non-tender, No respiratory distress, Breath sounds nml Cardiovascular: positive: Regular rate & rhythm, No murmur, No gallop Peripheral Pulses: 1+ Dorsalis pedis (R), 1+ Dorsalis pedis (L), 2+ Radial (R), 2+ Radial (L) Abdomen: positive: Non-tender, Nml bowel sounds, No distention Skin: positive: Color nml, No rash, Warm, Other (Decreased capillary refill in fingernails) Extremities: positive: Non-tender, Full ROM, Nml appearance, No pedal edema Neurologic/Psychiatric: positive: Oriented x3, CN's nml (2-12), Motor nml, Se nsation nml, Mood/affect nml - Lab Results Fish Bones: 08/05/22 14:43 08/05/22 05:18 Other Labs: Lab Results x24hrs 08/05/22 08/04/22 08/04/22 Range/Units 05:18 15:29 08:31 WBC 8.5 (4.8-10.8) x10^3/uL RBC 2.97 L (4.20-5.40) 10^6/uL Hgb 8.1 L (12.0-16.0) g/dL Hct 25.1 L (37.0-47.0) % MCV 84.5 (81.0-99.0) fL MCH 27.3 (27.0-31.0) pg MCHC 32.3 (32.0-36.0) g/dL RDW 16.3 H (12.0-15.0) % Plt Count 186 (130-450) 10^3/uL MPV 9.0 (7.9-10.8) fL Neut # (Auto) (1.5-6.6) 10^3/uL Lymph # (Auto) (1.5-3.5) 10^3/uL [place] # (Auto) (0.0-1.0) 10^3/uL Eos # (Auto) (0.0-0.7) 10^3/uL Baso # (Auto) (0.0-0.1) 10^3/uL Absolute Nucleated RBC x10^3/uL Nucleated RBC % /100WBC PT (9.9-12.6) secs INR (0.8-1.2) Sodium 137 (135-145) mmol/L Potassium 4.1 (3.5-5.0) mmol/L Chloride 108 (101-111) mmol/L Carbon Dioxide 23 (21-32) mmol/L Anion Gap 6.0 (6-13) BUN 31 H (6-20) mg/dL Creatinine 0.9 (0.4-1.0) mg/dL Estimated GFR (MDRD) 59 L (>89) Glucose 106 H (70-100) mg/dL Calcium 8.5 (8.5-10.3) mg/dL Total Bilirubin (0.2-1.0) mg/dL AST (10-42) IU/L ALT (10-60) IU/L Alkaline Phosphatase (42-121) IU/L Total Protein (6.7-8.2) g/dL Albumin (3.2-5.5) g/dL Globulin (2.1-4.2) g/dL Albumin/Globulin Ratio (1.0-2.2) Lipase (22-51) U/L SARS-CoV-2 (PCR) NOT DETECTED Blood Type Antibody Screen 08/04/22 08/04/22 08/04/22 Range/Units 08:31 08:31 08:31 WBC 9.7 (4.8-10.8) x10^3/uL RBC 3.86 L (4.20-5.40) 10^6/uL Hgb 10.3 L (12.0-16.0) g/dL Hct 33.0 L (37.0-47.0) % MCV 85.5 (81.0-99.0) fL MCH 26.7 L (27.0-31.0) pg MCHC 31.2 L (32.0-36.0) g/dL RDW 16.3 H (12.0-15.0) % Plt Count 264 (130-450) 10^3/uL MPV 9.2 (7.9-10.8) fL Neut # (Auto) 6.8 H (1.5-6.6) 10^3/uL Lymph # (Auto) 1.9 (1.5-3.5) 10^3/uL [place] # (Auto) 0.5 (0.0-1.0) 10^3/uL Eos # (Auto) 0.3 (0.0-0.7) 10^3/uL Baso # (Auto) 0.1 (0.0-0.1) 10^3/uL Absolute Nucleated RBC 0.00 x10^3/uL Nucleated RBC % 0.0 /100WBC PT 11.5 (9.9-12.6) secs INR 1.0 (0.8-1.2) Sodium 134 L (135-145) mmol/L Potassium 3.3 L (3.5-5.0) mmol/L Chloride 101 (101-111) mmol/L Carbon Dioxide 22 (21-32) mmol/L Anion Gap 11.0 (6-13) BUN 61 H (6-20) mg/dL Creatinine 0.8 (0.4-1.0) mg/dL Estimated GFR (MDRD) 68 L (>89) Glucose 134 H (70-100) mg/dL Calcium 8.7 (8.5-10.3) mg/dL Total Bilirubin 0.5 (0.2-1.0) mg/dL AST 19 (10-42) IU/L ALT 15 (10-60) IU/L Alkaline Phosphatase 42 (42-121) IU/L Total Protein 7.0 (6.7-8.2) g/dL Albumin 3.9 (3.2-5.5) g/dL Globulin 3.1 (2.1-4.2) g/dL Albumin/Globulin Ratio 1.3 (1.0-2.2) Lipase 43 (22-51) U/L SARS-CoV-2 (PCR) Blood Type Antibody Screen 08/04/22 Range/Units 08:31 WBC (4.8-10.8) x10^3/uL RBC (4.20-5.40) 10^6/uL Hgb (12.0-16.0) g/dL Hct (37.0-47.0) % MCV (81.0-99.0) fL MCH (27.0-31.0) pg MCHC (32.0-36.0) g/dL RDW (12.0-15.0) % Plt Count (130-450) 10^3/uL MPV (7.9-10.8) fL Neut # (Auto) (1.5-6.6) 10^3/uL Lymph # (Auto) (1.5-3.5) 10^3/uL [place] # (Auto) (0.0-1.0) 10^3/uL Eos # (Auto) (0.0-0.7) 10^3/uL Baso # (Auto) (0.0-0.1) 10^3/uL Absolute Nucleated RBC x10^3/uL Nucleated RBC % /100WBC PT (9.9-12.6) secs INR (0.8-1.2) Sodium (135-145) mmol/L Potassium (3.5-5.0) mmol/L Chloride (101-111) mmol/L Carbon Dioxide (21-32) mmol/L Anion Gap (6-13) BUN (6-20) mg/dL Creatinine (0.4-1.0) mg/dL Estimated GFR (MDRD) (>89) Glucose (70-100) mg/dL Calcium (8.5-10.3) mg/dL Total Bilirubin (0.2-1.0) mg/dL AST (10-42) IU/L ALT (10-60) IU/L Alkaline Phosphatase (42-121) IU/L Total Protein (6.7-8.2) g/dL Albumin (3.2-5.5) g/dL Globulin (2.1-4.2) g/dL Albumin/Globulin Ratio (1.0-2.2) Lipase (22-51) U/L SARS-CoV-2 (PCR) Blood Type O POSITIVE Antibody Screen NEGATIVE - Diagnostic Imaging Diagnostic Imaging Results: positive: Final report reviewed Diagnostic Imaging Comments: Upper endoscopy: small non-bleeding shallow ulcer in cardia of stomach. Small hiatal hernia. EKG: sinus tachycardia. Inferior infarct, age indeterminate. Atrial premature complex. Sepsis Event Note (H) - Evaluation Current Stage of Sepsis: Ruled out (Afebrile, not tachycardic, normal WBC, normal RR, alert and oriented) Assessment/Plan - Problem List (1) Anemia Impression: Due gastric bleeding and large volume hematemesis. She is hemodynamically stable without respiratory or cardiac symptoms. She has preexisting CAD. Her hemoglobin dropped to 8.1 today from 10.3 yesterday. Per UpToDate, transfusion is indicated at 8 g/dL if patient has CAD even if stable. Additionally, transfusion is kathryn mmended if hemoglobin is less than 10 and rapidly declining. Plan: RBC transfusion - give 1 unit. Monitor for hemodynamic instability, respiratory or cardiac symptoms. Monitor hemoglobin. Stop her aspirin and possibly clopidogrel, as it puts her at increased bleeding risk and cause anemia. She can discharge home this afternoon if stable. Qualifiers: Anemia type: iron deficiency Iron deficiency anemia type: chronic blood loss Qualified Code(s): D50.0 - Iron deficiency anemia secondary to blood loss (chronic) (2) Gastric ulcer due to nonsteroidal antiinflammatory drug (NSAID) therapy Impression: She had a small non-bleeding shallow ulcer in the cardia of the stomach that was found on endoscopy. Plan: Soft diet in recovery. Avoid NSAIDs, including aspirin and diclofenac. Consider stopping her antiplatelet medication clopidogrel as it puts her at increased bleeding risk. Continue PPI daily 30 minutes before a meal. Awaiting biopsy results. (3) Hiatal hernia Impression: She presented with large volume hematemesis and anemia. On endoscopy, found small hiatal hernia. Plan: Soft diet in recovery. Continue PPI daily 30 minutes before a meal. Avoid large meals, alcohol, eating right before bed, and acidic foods. (4) Hematemesis Impression: This has resolved. Due to gastric ulcer, most likely aspirin-induced hemorrhagic gastritis. She had an upper endoscopy yesterday that found an ulcer in cardia of stomach and small hiatal hernia. She is anemic from blood loss. Plan: Monitor for nausea or vomiting. Stop 81 mg aspirin. Needs 1 unit blood since hemoglobin 8.1 g/dL. Can discharge home later today if stable. Qualifiers: Nausea presence: without nausea Qualified Code(s): K92.0 - Hematemesis
--- NOTE | 2022-08-05 10:54 | PHARMACY PROGRESS NOTE ---
- Best Possible Medication History Admit Date and Time: 08/04/22 1210 Processed by: Pharmacy Medication History completed: Yes Patient Interview: Completed Secondary Source(s): Physician records, Pharmacy records, Insurance records As the person ultimately responsible for medication therapy, providers are able to order a medication from an existing home medication list in [facility] via the "Reconcile Routine" prior to Confirmation of that medication by sales support representative. Such practice is discouraged except when the physician, in their clinical judgment, deems that a medical need exists for a medication without regard to previous use.
--- NOTE | 2022-08-05 11:02 | PROVIDER PROGRESS NOTE ---
Subjective - General Admit Date: 08/04/22 Procedure Date: 08/04/22 Post Op Days: 1 Procedure Performed: EGD with biopsy - Review of Systems General: positive: Chills Cardiovascular: negative: Chest pain, Palpitations Gastrointestinal: positive: Abdominal pain (epigastric, improving) All Other Systems: positive: Reviewed and negative - Other Other Information/Narrative: Patient endorses pain with eating, some nausea, no vomiting. Pain improved from yesterday. No acute events overnight. +BM's, initially dark, but cleared. Objective - Patient Data Reviewed Vital Signs: Yes Vital Signs: Vital Signs x48h Temp Pulse Resp BP Pulse Ox 08/05/22 08:10 36.9 C 81 18 132/61 H 98 Weight: Weight 08/03/22 08/04/22 08/05/22 23:59 23:59 23:59 Weight (kg) 53.9 kg Intake & Output: Intake and Output Totals x24h 08/03/22 08/04/22 08/05/22 23:59 23:59 23:59 Intake Total 2200 560 Output Total 1150 550 Balance 1050 10 - Lab Results Lab Results: 08/05/22 05:18 08/05/22 05:18 Other Lab Results: Lab Results x24hrs 08/05/22 08/05/22 08/04/22 Range/Units 05:18 05:18 15:29 WBC 7.2 8.5 (4.8-10.8) x10^3/uL RBC 2.80 L 2.97 L (4.20-5.40) 10^6/uL Hgb 7.7 L 8.1 L (12.0-16.0) g/dL Hct 23.9 L 25.1 L (37.0-47.0) % MCV 85.4 84.5 (81.0-99.0) fL MCH 27.5 27.3 (27.0-31.0) pg MCHC 32.2 32.3 (32.0-36.0) g/dL RDW 16.6 H 16.3 H (12.0-15.0) % Plt Count 206 186 (130-450) 10^3/uL MPV 9.9 9.0 (7.9-10.8) fL Neut # (Auto) 5.1 (1.5-6.6) 10^3/uL Lymph # (Auto) 1.4 L (1.5-3.5) 10^3/uL [place] # (Auto) 0.4 (0.0-1.0) 10^3/uL Eos # (Auto) 0.2 (0.0-0.7) 10^3/uL Baso # (Auto) 0.0 (0.0-0.1) 10^3/uL Absolute Nucleated RBC 0.00 x10^3/uL Nucleated RBC % 0.0 /100WBC Sodium 137 (135-145) mmol/L Potassium 4.1 (3.5-5.0) mmol/L Chloride 108 (101-111) mmol/L Carbon Dioxide 23 (21-32) mmol/L Anion Gap 6.0 (6-13) BUN 31 H (6-20) mg/dL Creatinine 0.9 (0.4-1.0) mg/dL Estimated GFR (MDRD) 59 L (>89) Glucose 106 H (70-100) mg/dL Calcium 8.5 (8.5-10.3) mg/dL Blood Type Antibody Screen Crossmatch IS Only 08/04/22 Range/Units 08:31 WBC (4.8-10.8) x10^3/uL RBC (4.20-5.40) 10^6/uL Hgb (12.0-16.0) g/dL Hct (37.0-47.0) % MCV (81.0-99.0) fL MCH (27.0-31.0) pg MCHC (32.0-36.0) g/dL RDW (12.0-15.0) % Plt Count (130-450) 10^3/uL MPV (7.9-10.8) fL Neut # (Auto) (1.5-6.6) 10^3/uL Lymph # (Auto) (1.5-3.5) 10^3/uL [place] # (Auto) (0.0-1.0) 10^3/uL Eos # (Auto) (0.0-0.7) 10^3/uL Baso # (Auto) (0.0-0.1) 10^3/uL Absolute Nucleated RBC x10^3/uL Nucleated RBC % /100WBC Sodium (135-145) mmol/L Potassium (3.5-5.0) mmol/L Chloride (101-111) mmol/L Carbon Dioxide (21-32) mmol/L Anion Gap (6-13) BUN (6-20) mg/dL Creatinine (0.4-1.0) mg/dL Estimated GFR (MDRD) (>89) Glucose (70-100) mg/dL Calcium (8.5-10.3) mg/dL Blood Type O POSITIVE Antibody Screen NEGATIVE Crossmatch IS Only See Detail - Current Medications Current Medications: Current Medications Generic Name Dose Route Start Last Admin Trade Name Freq PRN Reason Stop Dose Admin Al Hydroxide/Mg Hydroxide 30 ml 08/04/22 21:45 08/04/22 21:57 Mag Hydrox/Al Hydrox/Simeth 30 Ml Udc PO 30 ml Q4HR PRN Administration INDIGESTION Morphine Sulfate 2 mg 08/04/22 12:10 08/05/22 02:45 Morphine 2 Mg/Ml Carpuject IVP 2 mg Q2HR PRN Administration Pain 8 to 10 Pantoprazole Sodium 40 mg 08/05/22 07:00 08/05/22 06:32 Pantoprazole 40 Mg Tablet PO 40 mg QDAC BROOKS Administration Sodium Chloride 10 ml 08/04/22 17:00 08/05/22 02:46 Sodium Chloride Flush 0.9% 10 Ml Syringe IVP 10 ml 0100,[id number],1700 BROOKS Administration - Physical Exam General Appearance: positive: No acute distress, Alert Eyes Bilateral: positive: Normal inspection, PERRL, EOMI Neck: positive: No JVD, Trachea midline Respiratory: positive: No respiratory distress, Breath sounds nml Cardiovascular: positive: Regular rate & rhythm, Systolic murmur (4/6 KARINE) Abdomen: positive: No distention, Tenderness (mild, epigastric). negative: Guarding, Rebound Neurologic/Psychiatric: positive: Oriented x3 Impression/Plan - Problem List Problem List: 89 y/o F with: gastric ulcer - hematemesis prior to presentation, none since arrival in ED - ulcer not bleeding at time of EGD 08/04 (shallow ulcer without exposed vessel) no clips or intervention - Hgb stable this AM, BM's non bloody - recommend continuing PPI, consider carafate (1g PO one hour prior to meals and before bed) to coat stomach and help with post parandial discomfort - f/u biopsy result for H pylori status - recommend avoiding all NSAID medications - consider stopping plavix if not needed for CAD - patient may f/u with surgery clinic prn - ok to discharge from surgery standpoint if able to tolerate diet Thank you for consulting us in the care of this patient. We will follow peripherally. Please call with any questions or concerns.
[2022-08-05 14:14] VITALS: BP 130/65
--- NOTE | 2022-08-05 14:42 | Discharge Plan ---
Discharge Plan Problem Reviewed?: Yes Disposition: Home, Self Care Condition: Fair Prescriptions: Pantoprazole [Protonix] 40 mg PO QDAC #30 tab Diet: Regular Activity Restrictions: Activity as Tolerated Shower Restrictions: No Driving Restrictions: Yes Assistance Devices: [facility] Concerns: You presented to the emergency room by ambulance because you have started vomiting blood very suddenly at the bathroom sink. You were anemic and you have needed 1 unit of blood. We transfused. We did an endoscopy on you which is an upper video that caused it and your esophagus and down into your stomach. We found that the most likely source of bleeding was an ulcer caused by taking aspirin. You have responded well to the medicines to heal ulcers overnight. Plan of Treatment: You must never take an aspirin or any type of aspirin like product. In other words ibuprofen, Aleve, Naprosyn or all medicines you can never take again. Take the ulcer medicine, Protonix, once a day for the next month. Make sure you see your primary care provider in the next 1 to 2 weeks. They may want to check your blood to make sure that your anemia is better I would like you to take an iron tablet a day to help build your blood back up again. Do that for the next 1 to 2 months. Care Goals: To heal your ulcer, and not have any more bleeding Assessment: Patient is alert, with mild to moderate cognitive deficits, caregiver picked her up to take her home. No Smoking: If you smoke, Please STOP! Call for help.
--- NOTE | 2022-08-05 14:50 | DISCHARGE SUMMARY ---
"Discharge Summary Admit Date: 08/04/22 Discharge Date: 08/05/22 Discharging Provider: Maya Rosado MD Code Status: Attempt Resuscitation Condition at Discharge: Fair Discharge Disposition: 01 Home, Self Care - DIAGNOSES Discharge Diagnoses with Status of Each Condition: 1. Hematemesis 2. Acute blood loss anemia 3. Nonsteroidal induced gastric ulcer 4. Dementia 5. History of coronary artery disease 6. Hiatal hernia - HPI History of Present Illness: 89 year old female with history of coronary artery disease and peptic ulcer disease presented to the ED today for evaluation of hematemesis that started suddenly this morning. She reports having some epigastric abdominal discomfort for a few days.This morning she had several episodes of vomiting bright red blood with clots. She denies history of similar symptoms. She takes once daily aspirin and clopidogrel. Per her caregiver, she has been taking Pepto-Bismol the last few days. She denies blood in her urine or stool. She denies coughing blood. She denies chest pain or difficulty breathing. She denies drug or alcohol use. The general surgeon was consulted and she had an upper endoscopy today. She had a small non-bleeding shallow ulcer in the cardia of the stomach and a small hiatal hernia. A biopsy was performed and sent for histology. Post endoscopy, she is alert, oriented, and conversant. She is aware that she had an endoscopy and that they found a stomach ulcer. She goes off on tangential stories but she answers questions appropriately when asked. She is difficult to understand because she does not have her original teeth and she does not have her dentures. She denies nausea, vomiting or abdominal pain. She denies chest pain or difficulty breathing. - Past Medical History Cardiovascular: reports: Hypertension, High cholesterol, Coronary artery disease, OR, Murmur, Other Respiratory: reports: Asthma Neuro: reports: Alzhiemer's, Dementia, Head injury, Headaches Endocrine/Autoimmune: reports: None GI: reports: GERD : reports: Nocturia, Frequency HEENT: reports: Chronic vision loss, Chronic hearing loss Psych: reports: Depression, Anxiety, Post traumatic stress disorder Musculoskeletal: reports: Osteoarthritis, Osteoporosis Derm: reports: Psoriasis MRSA Hx?: No - Past Surgical History General: reports: Appendectomy /CLINICAL TRIAL EDUCATOR: reports: Hysterectomy Cardiovascular: reports: CABG, Coronary stent, Cardiac catheterization, Angioplasty HEENT: reports: Cataracts - CONSULTS | PROCEDURES Procedures: Transfusion of 1 unit of blood EGD with small nonbleeding shallow ulcer of the cardia, small hiatal hernia. A biopsy was performed using cold forceps. Pathology pending at the time of discharge. - HOSPITAL COURSE Hospital Course: Patient was placed in observation status with serial hemograms. Baseline hemoglobin is 12.7. On admission she was 10.3 and drifted down to 7.7. Will transfuse 1 unit of blood. She also underwent an EGD that showed a small nonbleeding ulcer that we think is nonsteroidal induced gastropathy. She has been instructed not to take any nonsteroidal therapy at all. Take Protonix daily for the next 30 days. An iron tablet a day for the next 30 days. See her primary care provider in follow-up. At discharge temperature is 36.7. Heart rate 80. Blood pressure 130/65. Respirations 17. 98% on room air. She is a mildly to moderately deaf elderly female, with tangential thought process in conversation. You are never quite sure if you heard what you said and if she understood it. Lungs are clear with diminished breath sounds at the bases. She has a regular rate and rhythm soft systolic murmur. Abdomen is soft, nontender. Bowel movement was had before discharge. No masses. Extremities are deformed by osteoarthritis, and neurologically she has memory loss, slow to move with stiffness of joints. Deafness is a slight barrier to communication. - ALLERGIES Allergies/Adverse Reactions: Allergies Allergy/AdvReac Type Severity Reaction Status Date / Time Rauwolfia Alkaloids Allergy Unknown unknown Verified 08/22/18 04:14 Sulfa (Sulfonamide Allergy Unknown unknown Verified 08/22/18 04:14 Antibiotics) Thiazides Allergy Unknown unknown Verified 08/22/18 04:14 mirtazapine [From Remeron] AdvReac heart Verified 08/22/18 04:14 palpitations - MEDICATIONS Home Medications: Ambulatory Orders Medication Instructions Recorded Confirmed Ascorbic Acid [Vitamin C] 1,000 mg PO DAILY 08/05/22 08/05/22 Cholecalciferol (Vitamin D3) 125 mcg PO DAILY 08/05/22 08/05/22 [D3-5000] Pantoprazole [Protonix] 40 mg PO QDAC #30 tab 08/05/22 - LABS Result Diagrams: 08/05/22 05:18 08/05/22 05:18 - SEPSIS Current Stage of Sepsis: Ruled out (Afebrile, not tachycardic, normal WBC, normal RR, alert and oriented)"
[2022-08-05 14:52] LABS: HCT - HEMATOCRIT 28.4 % (37.0-47.0); HGB - HEMOGLOBIN 9.3 g/dL (12.0-16.0); MEAN CORPUSCULAR HEMOGLOBIN 27.8 pg (27.0-31.0); MEAN CORPUSCULAR HGB CONC 32.7 g/dL (32.0-36.0); MEAN CORPUSCULAR VOLUME 84.8 fL (81.0-99.0); MEAN PLATELET VOLUME 9.1 fL (7.9-10.8); RED BLOOD COUNT 3.35 10^6/uL (4.20-5.40); WHITE BLOOD COUNT 7.3 x10^3/uL (4.8-10.8)
== END 2022-08-05 16:00 | disposition home or self-care (01) ==
LOC: EDUNIT# → EDBD → ED 08:03 → MS2 12:10
PROVIDERS: ADMIT Specialist; ATTEND Specialist
PROC: 0DB68ZX Excision of Stomach, Via Natural or Artificial Opening Endoscopic, Diagnostic (ICD-10-PCS; principal; 2022-08-04 14:30)
DX: K25.3 Acute gastric ulcer without hemorrhage or perforation (principal); T45.525A Adverse effect of antithrombotic drugs, initial encounter; K44.9 Diaphragmatic hernia without obstruction or gangrene; D62 Acute posthemorrhagic anemia; I25.2 Old myocardial infarction; I10 Essential (primary) hypertension; Z95.1 Presence of aortocoronary bypass graft; Z95.5 Presence of coronary angioplasty implant and graft; Z87.891 Personal history of nicotine dependence; Z87.11 Personal history of peptic ulcer disease; Z86.73 Personal history of transient ischemic attack (TIA), and cerebral infarction without residual deficits; F03.90 Unspecified dementia, unspecified severity, without behavioral disturbance, psychotic disturbance, mood disturbance, and anxiety; Z79.82 Long term (current) use of aspirin; Z79.1 Long term (current) use of non-steroidal anti-inflammatories (NSAID); Z79.02 Long term (current) use of antithrombotics/antiplatelets; Z20.822 Contact with and (suspected) exposure to COVID-19; Z66 Do not resuscitate
CPT/HCPCS: 36415; 43239; 71045; 80048; 80053; 83690; 85025; 85027; 85610; 86850; 86900; 86901; 86920; 87635; 93005; 96361; 96365; 96366; 96375; 99285; A9270; G0378; P9016